=== PATIENT | female | born 1935 | race African-American/Black ===

== ENCOUNTER → 2016-08-26 | Outpatient (CLI) | payer BC ==
[~2016-08-26] MED LIST: ATEN100T8 PO; FERR325T5 PO; Lotrel PO; MULT-513 PO
--- NOTE | 2016-08-26 14:52 | MAMMOGRAPHY REPORT ---
BILATERAL DIGITAL SCREENING MAMMOGRAM WITH CAD: 08/26/2016 CLINICAL HISTORY: Routine screening. Patient has no complaints. TECHNIQUE: Current study was also evaluated with a Computer Aided Detection (CAD) system. Bilatera l CC and MLO views were obtained. COMPARISON: Comparison is made to exams dated: 08/07/2015 ultrasound, 08/07/2015 mammogram, 07/24/2015 mammogram, 07/17/2013 mammogram, 07/18/2014 mammogram, and 07/13/2012 mammogram - [facility]. BREAST COMPOSITION: There are scattered areas of fibroglandular density in both breasts. FINDINGS: No suspicious masses, calcifications, or areas of architectural distortion are noted in e ither breast. There has been no significant interval change compared to prior exams. Scattered bilat eral benign-appearing calcifications are not significantly changed. IMPRESSION: ACR BI-RADS CATEGORY 2: BENIGN There is no mammographic evidence of malignancy. A 1 year screening mammogram is recommended. The p atient will receive written notification of the results. Approximately 10% of breast cancers are not detected with mammography. A negative mammographic repor t should not delay biopsy if a clinically suggestive mass is present. Cara Santos M.D. /:08/26/2016 13:30:08 District Fire Chief: Sharon PALMER(Vincent)(Jose Manuel), [facility] letter sent: Normal 1/2 BI-RADS Code: ACR BI-RADS Category 2: Benign
== END | disposition home or self-care (01) ==
LOC: C.MAMM 09:13
PROVIDERS: ATTEND Internal Medicine Geriatric Medicine
DX: Z12.31 Encounter for screening mammogram for malignant neoplasm of breast (principal)

== ENCOUNTER → 2016-09-20 | Outpatient (CLI) | payer BC | END | disposition home or self-care (01) | LOC: C.RDSM 14:41 | PROVIDERS: ATTEND Physical Medicine & Rehabilitation Sports Medicine | DX: Z96.653 Presence of artificial knee joint, bilateral (principal) ==

== ENCOUNTER → 2016-11-04 | Outpatient (CLI) | payer BC | END | disposition home or self-care (01) | LOC: C.LAB 12:18 | PROVIDERS: ATTEND Internal Medicine Geriatric Medicine | DX: I12.9 Hypertensive chronic kidney disease with stage 1 through stage 4 chronic kidney disease, or unspecified chronic kidney disease (principal); M19.90 Unspecified osteoarthritis, unspecified site; N18.9 Chronic kidney disease, unspecified; C91.10 Chronic lymphocytic leukemia of B-cell type not having achieved remission; D64.9 Anemia, unspecified ==

== ENCOUNTER → 2016-11-04 | Outpatient (CLI) | payer BC ==
--- NOTE | 2016-11-04 13:19 | DIAGNOSTIC IMAGING REPORT ---
CHEST 2 VIEWS ROUTINE CLINICAL HISTORY: CLL dyspnea COMPARISON STUDY: 05/08/2015 FINDINGS: Lungs are considered clear. No evidence for cardiac enlargement. Potential developing blastic changes of the thoracic spine. Bone scan is suggested to exclude neoplastic process. IMPRESSION: 1. No acute process specifically of the chest. 2. Slight increase in bone density of the thoracic spine raising the possibility of metastatic change. Bone scan is suggested as follow-up Electronically signed by: Eleazar Woods M.D. 11/04/2016 1:17 PM Dictated Date/Time: 11/04/2016 1:15 PM
== END | disposition home or self-care (01) ==
LOC: C.RAD 12:30
PROVIDERS: ATTEND Nurse Practitioner Family
DX: C91.10 Chronic lymphocytic leukemia of B-cell type not having achieved remission (principal)

== ENCOUNTER → 2016-11-15 | Outpatient (CLI) | payer BC ==
--- NOTE | 2016-11-15 13:47 | DIAGNOSTIC IMAGING REPORT ---
WHOLE-BODY NUCLEAR BONE SCAN CLINICAL HISTORY: Abnormal chest x-ray. COMPARISON STUDY: Chest x-ray dated 11/04/2016. Abdominal CT dated 07/13/2012. TECHNIQUE: Three hours following the IV administration of 27 mCi of technetium 99m MDP, whole body nuclear bone scan was performed in the anterior and posterior projections. FINDINGS: There is extensive and indeterminant activity seen throughout the spine. There is intense activity within the upper cervical region, throughout the thoracic spine, and in the upper lumbar region. Advanced degenerative change is identified in the spine on the 07/13/[address] scan with significant degenerative endplate sclerosis. Photopenic defects from the knees are consistent with bilateral knee arthroplasties. Typically degenerative uptake is identified in the shoulders, hips, knees, in the ankles, and feet. Focal tracer activity suggested within the right tibial shaft. There is expected excreted activity within the renal collecting system and bladder. IMPRESSION: 1. There is multilevel abnormal degenerative tracer deposition seen throughout the spine. Extensive degenerative change was seen in the lower thoracic and upper lumbar spine by abdominal CT on 07/13/2012 with significant associated degenerative sclerosis. This activity is indeterminant, and a degenerative etiology is favored over metastatic disease. Cervical, thoracic, and lumbar spinal radiographs are recommended for further assessment. 2. There is a questionable mild indeterminant focus of activity in the right proximal tibial shaft. Radiographic correlation is recommended. 3. Additional findings as above. Electronically signed by: Maury Winn M.D. 11/15/2016 1:44 PM Dictated Date/Time: 11/15/2016 1:39 PM
== END | disposition home or self-care (01) ==
LOC: C.NUCL 09:34
PROVIDERS: ATTEND Internal Medicine Geriatric Medicine
DX: C91.10 Chronic lymphocytic leukemia of B-cell type not having achieved remission (principal); R93.8 Abnormal findings on diagnostic imaging of other specified body structures

== ENCOUNTER → 2016-11-22 | Outpatient (CLI) | payer BC ==
--- NOTE | 2016-11-22 09:17 | DIAGNOSTIC IMAGING REPORT ---
CERVICAL SPINE 2 OR 3 VIEWS CLINICAL HISTORY: Osteoarthritis. COMPARISON STUDY: Whole-body bone scan November 15, 2016. FINDINGS: Alignment of the cervical spine is anatomic. No fracture or suspicious lesion is identified by radiography. Moderate to severe multilevel degenerative disc disease and facet arthrosis is present. Prevertebral soft tissues are unremarkable. IMPRESSION: 1. Moderate to severe multilevel degenerative disc disease and facet arthrosis of the cervical spine. 2. No fracture or suspicious lesion by radiography within the cervical spine. Electronically signed by: Joe Wright M.D. 11/22/2016 9:15 AM Dictated Date/Time: 11/22/2016 9:13 AM
--- NOTE | 2016-11-22 09:17 | DIAGNOSTIC IMAGING REPORT ---
RIGHT TIBIA/FIBULA 2 VIEWS ROUTINE CLINICAL HISTORY: Right leg pain COMPARISON: 09/20/2016 DISCUSSION: There is a healing proximal fibular fracture, similar to the preceding examination. 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 No destructive lesions are visualized. IMPRESSION: 1. Healing proximal fibular fracture, unchanged in alignment when compared the prior study 2. 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 11/22/2016 9:15 AM Dictated Date/Time: 11/22/2016 9:13 AM
--- NOTE | 2016-11-22 09:18 | DIAGNOSTIC IMAGING REPORT ---
THORACIC SPINE 3 VIEWS HISTORY: Back pain. OSTEOARTHRITIS COMPARISON: Bone scan 11/15/2016. FINDINGS: There is no fracture. No subluxation. Paraspinal soft tissues are unremarkable. Cholecystectomy. End plate sclerosis throughout the majority of the thoracic spine with associated moderate to severe disc space narrowing and small endplate osteophytes. This favors advanced degenerative change. No destructive lesions identified. Fusion of the T6-T7 vertebral bodies. IMPRESSION: Advanced degenerative changes throughout the thoracic spine. This likely accounts for the bone scan abnormality. Electronically signed by: Lester Paz M.D. 11/22/2016 9:16 AM Dictated Date/Time: 11/22/2016 9:13 AM
--- NOTE | 2016-11-22 09:27 | DIAGNOSTIC IMAGING REPORT ---
L-SPINE MIN 4 VIEWS ROUTINE CLINICAL HISTORY: Osteoarthritis. COMPARISON: Whole-body bone scan November 15, 2016. FINDINGS: Mild dextroscoliosis of the lumbar spine is noted. There is no acute fracture or suspicious lesion. There is moderate to severe multilevel degenerative disc disease, most pronounced at the L5-S1 level. There is no fracture or suspicious lesion. There are suspected calcified uterine fibroids. There are cholecystectomy clips. IMPRESSION: 1. No acute lumbar spine fracture or suspicious lesion by radiography. 2. Moderate to severe multilevel degenerative changes, most pronounced at L5-S1. 3. Suspected calcified uterine fibroids. Electronically signed by: Joe Wright M.D. 11/22/2016 9:25 AM Dictated Date/Time: 11/22/2016 9:16 AM
== END | disposition home or self-care (01) ==
LOC: C.RADBC 08:20
PROVIDERS: ATTEND Internal Medicine Geriatric Medicine
DX: M19.90 Unspecified osteoarthritis, unspecified site (principal); M50.30 Other cervical disc degeneration, unspecified cervical region; M47.812 Spondylosis without myelopathy or radiculopathy, cervical region; M47.816 Spondylosis without myelopathy or radiculopathy, lumbar region; M47.817 Spondylosis without myelopathy or radiculopathy, lumbosacral region; M47.814 Spondylosis without myelopathy or radiculopathy, thoracic region; S82.831D Other fracture of upper and lower end of right fibula, subsequent encounter for closed fracture with routine healing; X58.XXXD Exposure to other specified factors, subsequent encounter; Z96.651 Presence of right artificial knee joint

== ENCOUNTER → 2016-11-30 | Outpatient (CLI) | payer BC ==
--- NOTE | 2016-12-06 13:22 | CODING QUERY MEDICAL NECESSITY ---
SUPPORTING DIAGNOSIS NEEDED Dr. Negerte, A supporting diagnosis is required for the test/procedure performed on this patient in order for us to be reimbursed by the patient's insurance. Please provide a supporting diagnosis for the following test/procedure listed below next to the test name along with your signature. *If there is no additional diagnosis for this patient that would support the following test/procedure please document that below next to the test/procedure. Test(s)/Procedure(s) that require a supporting diagnosis: * ([id number]) DXA BONE DENSITY, AXIAL DIAGNOSIS: DATE OF SERVICE: 11/30/16 Provider Signature: Date: Thank you Humble Perera [facility] Information Management Once completed, please kindly fax back to [phone] For questions please call [phone]
== END | disposition home or self-care (01) ==
LOC: C.MAMM 10:06
PROVIDERS: ATTEND Internal Medicine Geriatric Medicine
DX: Z00.00 Encounter for general adult medical examination without abnormal findings (principal); C91.10 Chronic lymphocytic leukemia of B-cell type not having achieved remission

== ENCOUNTER → 2017-05-10 | Outpatient (CLI) | payer BC ==
[2017-05-10 14:32] LABS: MEAN CORPUSCULAR HGB CONC 32.6 g/dl (32-36); MEAN PLATELET VOLUME 9.8 fL (7.4-10.4); PLATELET COUNT 189 K/uL (130-400)
[2017-05-10 14:51] LABS: URINE PROTIEN/CREAT RATIO 0.1 (0-0.2); URINE TOTAL PROTEIN 18.1 mg/dl (0-11.9)
[2017-05-10 15:18] LABS: ALT/SGPT 17 U/L (12-78); AST/SGOT 10 U/L (15-37); BLOOD UREA NITROGEN 41 mg/dl (7-18); BUN/CREATININE RATIO 22.8 (10-20); CALCIUM 8.5 mg/dl (8.5-10.1); CARBON DIOXIDE 21 mmol/L (21-32); CHLORIDE 106 mmol/L (98-107); GLUCOSE 108 mg/dl (70-99); POTASSIUM 4.1 mmol/L (3.5-5.1); SODIUM 137 mmol/L (136-145)
[2017-05-10 15:20] LABS: ALB/GLOB RATIO 1.1 (0.9-2); ALKALINE PHOSPHATASE 73 U/L (45-117)
[2017-05-10 15:48] LABS: COMPLETE YES; EOSINOPHIL % 0.9 %; HEMATOCRIT 32.2 % (37-47); LYMPH ABS # 15.79 K/uL (1.2-3.4); LYMPHOCYTE % 88.7 %; MEAN CELL VOLUME 91.7 fL (80-100); MEAN CORPUSCULAR HEMOGLOBIN 29.9 pg (25-34); NEUTROPHILS % 7.8 %; RED BLOOD COUNT 3.51 M/uL (4.2-5.4); SCHISTOCYTES OCCASIONAL; SMUDGE CELLS PRESENT
== END | disposition home or self-care (01) ==
LOC: C.LAB 12:37
PROVIDERS: ATTEND Internal Medicine Geriatric Medicine
DX: I12.9 Hypertensive chronic kidney disease with stage 1 through stage 4 chronic kidney disease, or unspecified chronic kidney disease (principal); D64.9 Anemia, unspecified; C91.10 Chronic lymphocytic leukemia of B-cell type not having achieved remission; N18.9 Chronic kidney disease, unspecified

== ENCOUNTER → 2017-08-30 | Outpatient (CLI) | payer BC ==
--- NOTE | 2017-08-30 14:41 | MAMMOGRAPHY REPORT ---
BILATERAL DIGITAL SCREENING MAMMOGRAM TOMOSYNTHESIS WITH CAD: 08/30/2017 CLINICAL HISTORY: Routine screening. Patient has no complaints. TECHNIQUE: Breast tomosynthesis in addition to standard 2D mammography was performed. Current study was also evaluated with a Computer Aided Detection (CAD) system. COMPARISON: Comparison is made to exams dated: 08/26/2016 mammogram, 08/07/2015 ultrasound, 08/07/2015 ma mmogram, 07/24/2015 mammogram, 07/18/2014 mammogram, and 07/17/2013 mammogram - [facility]. BREAST COMPOSITION: There are scattered areas of fibroglandular density in both breasts. FINDINGS: No suspicious masses, calcifications, or areas of architectural distortion are noted in ei ther breast. There has been no significant interval change compared to prior exams. Scattered bilater al benign-appearing calcifications are not significantly changed. IMPRESSION: ACR BI-RADS CATEGORY 2: BENIGN There is no mammographic evidence of malignancy. A 1 year screening mammogram is recommended. The pa tient will receive written notification of the results. Approximately 10% of breast cancers are not detected with mammography. A negative mammographic report should not delay biopsy if a clinically suggestive mass is present. Cara Santos M.D. /:08/30/2017 13:41:17 Case Management Rn: Shelley Dejesus, [facility] letter sent: Normal 1/2 BI-RADS Code: ACR BI-RADS Category 2: Benign
== END | disposition home or self-care (01) ==
LOC: C.MAMM 09:28
PROVIDERS: ATTEND Internal Medicine Geriatric Medicine
DX: Z12.31 Encounter for screening mammogram for malignant neoplasm of breast (principal)

== ENCOUNTER → 2017-09-19 | Outpatient (CLI) | payer BC | END | disposition home or self-care (01) | LOC: C.RDSM 10:30 | PROVIDERS: ATTEND Physical Medicine & Rehabilitation Sports Medicine | DX: Z96.653 Presence of artificial knee joint, bilateral (principal) ==

== ENCOUNTER → 2017-11-24 | Outpatient (CLI) | payer BC ==
[2017-11-24 13:17] LABS: HEMATOCRIT 34.8 % (37-47); HEMOGLOBIN 11.6 g/dL (12.0-16.0); MEAN CELL VOLUME 93.5 fL (80-100); MEAN CORPUSCULAR HEMOGLOBIN 31.2 pg (25-34); MEAN CORPUSCULAR HGB CONC 33.3 g/dl (32-36); MEAN PLATELET VOLUME 9.8 fL (7.4-10.4); PLATELET COUNT 188 K/uL (130-400); RED CELL DISTRIBUTION WIDTH CV 14.3 % (11.5-14.5); RED CELL DISTRIBUTION WIDTH SD 48.8 fL (36.4-46.3); WHITE BLOOD COUNT 25.53 K/uL (4.8-10.8)
[2017-11-24 13:38] LABS: ALBUMIN 3.8 gm/dl (3.4-5.0); BLOOD UREA NITROGEN 27 mg/dl (7-18); CALCIUM 9.6 mg/dl (8.5-10.1); CARBON DIOXIDE 24 mmol/L (21-32); CREATININE 1.26 mg/dl (0.60-1.20); GLUCOSE 94 mg/dl (70-99); POTASSIUM 4.3 mmol/L (3.5-5.1); SODIUM 137 mmol/L (136-145)
[2017-11-24 13:46] LABS: PHOSPHORUS 4.2 mg/dl (2.5-4.9); TRANSFERRIN 226 mg/dl (200-360)
[2017-11-24 13:54] LABS: BASO % 0.1 %; BASO ABS # 0.03 K/uL (0-0.2); EOS % 0.7 %; EOS ABS # 0.17 K/uL (0-0.5); IG# 0.04 K/uL (0.00-0.02); LYMPH % 79.7 %; LYMPH ABS # 20.36 K/uL (1.2-3.4); MONO % 9.9 %; MONO ABS # 2.54 K/uL (0.11-0.59); NEUT % 9.4 %; NEUT ABS # 2.39 K/uL (1.4-6.5)
== END | disposition home or self-care (01) ==
LOC: C.LAB 12:07
PROVIDERS: ATTEND Internal Medicine Nephrology
DX: N18.9 Chronic kidney disease, unspecified (principal); D64.9 Anemia, unspecified; E21.3 Hyperparathyroidism, unspecified

== ENCOUNTER 2019-09-23 01:28 | Inpatient (IN) ==
[2019-09-23] MEDS: SODIUM CHLORIDE 0.9% 1000ML 1,000 ML IV SCH ×2 (03:16→08:58)
[2019-09-23 03:38] LABS: Hematocrit (blood only) 20.8 % (37-47); Hemoglobin 7.2 g/dL (12.0-16.0); Mean Corpuscular Hemoglobin 32.3 pg (25-34); Mean Corpuscular Hgb Conc 34.6 g/dL (32-36); Mean Corpuscular Volume 93.3 fL (80-100); Mean Platelet Volume 8.9 fL (7.4-10.4); Platelet Count 43 K/uL (130-400); RDW Coefficient of Variation 18.4 % (11.5-14.5); RDW Standard Deviation 63.2 fL (36.4-46.3); Red Blood Count 2.23 M/uL (4.2-5.4); White Blood Count 2.63 K/uL (4.8-10.8)
[2019-09-23 03:46] LABS: Immature Granulocytes # (auto) 0.19 K/uL (0.00-0.02); Immature Granulocytes % (auto) 7.2 %; Lymphocytes # (auto) 0.68 K/uL (1.2-3.4); Lymphocytes % (auto) 25.9 %; Monocytes # (auto) 0.45 K/uL (0.11-0.59); Monocytes % (auto) 17.1 %; Neutrophils # (auto) 1.31 K/uL (1.4-6.5); Neutrophils % (auto) 49.8 %; Ovalocytes 1+; Poikilocytosis Present
[2019-09-23 04:13] LABS: Albumin Level 2.4 gm/dl (3.4-5.0); BUN Creatinine Ratio 15.7 (10-20); Bilirubin,Total 0.5 mg/dl (0.2-1); Calcium 7.5 mg/dl (8.5-10.1); Creatinine Clr Calc Pharmacy 25.6 ml/min; Est GFR (African American) 47.2; Est GFR (Non-African American) 40.8; Globulin 2.4 gm/dl (2.5-4.0); Magnesium 0.9 mg/dl (1.8-2.4); Potassium 3.6 mmol/L (3.5-5.1); Total Protein 4.8 gm/dl (6.4-8.2)
[2019-09-23] MEDS: MAGNESIUM SULFATE / D5W 1 GM/100 ML BAG IV SCH ×6 (04:28→15:56)
[2019-09-23 06:57] LABS: Appearance Urine Clear (Clear); Bilirubin Urine Negative (Negative); Blood Urine 1+ (Negative); Color Urine Yellow; Glucose Urine UA Negative (Negative); Ketones Urine 1+ (Negative); Leukocyte Esterase Urine 1+ (Negative); Nitrite Urine Negative (Negative); Protein Urine Negative (Negative); Urobilinogen Urine Negative (Negative)
--- NOTE | 2019-09-23 07:01 | CT Scan Report ---
CT abd pelvis wo con CT DOSE: 235.57 mGy.cm HISTORY: Bowel change diarrhea, pancytopenia, hx ca TECHNIQUE: Multiaxial CT images of the abdomen and pelvis were performed without contrast. A dose lo wering technique was utilized adhering to the principles of ALARA. COMPARISON STUDY: 03/19/2019 FINDINGS: Lung bases are clear. Liver spleen and pancreas are grossly unremarkable. Prior cholecystec ruben. Kidneys are negative for hydronephrosis. Mild colonic wall thickening which may relate to a mild component of colitis. There are multiple calc ified uterine fibroids. Diffusely heterogeneous bony structures throughout suggested metastatic change. This has been describ ed previously. IMPRESSION: 1. Possible mild colitis. 2. No evidence for abscess collection or obstruction. 3. Multiple calcified uterine fibroids. 4. Lytic changes of the bony structures throughout similar to prior exams. ACT 112: Negative or not required by law. The above report was generated using voice recognition software. It may contain grammatical, syntax or spelling errors. Electronically signed by: Eleazar Woods M.D. 09/23/2019 6:59 AM
[2019-09-23 07:12] LABS: Epithelial Cell Urine >30 /lpf (0-5); RBC Urine >30 /hpf (0-4)
[2019-09-23 07:14] LABS: Bacteria Urine 4+ (Negative); WBC Urine >30 /hpf (0-5)
--- NOTE | 2019-09-23 07:36 | Emergency Department Note ---
Entered by Patel Rosales acting as a scribe for History of Present Illness General Chief complaint: Diarrhea Stated complaint: DIARRHEA Time Seen by Provider: 09/23/19 02:15 Source: family (niece) History of Present Illness Onset (ago): month(s) 5 Location: abdomen Pain Consistency: + intermittent Quality: + other (episodes of diarrhea) Associated symptoms: + other (Positive for 40 pound weight loss, abdominal pain, an episode of unresponsiveness, dark and blood tinged diarrhea, and chills. Negative for fever.) The patient is an 83 year old female who presents to the emergency department with complaints of intermittent diarrhea beginning five months ago. Per niece, the patient has a history of CLL and is receiving chemotherapy and radiation. Dr. Sweeney in her oncologist. She states that the patient has had intermittent episodes of diarrhea for the last five months. She notes that the patient had salmonella 3 months ago, and she reports that the patient has lost around 40 pounds since then. She states that the patient developed abdominal pain yesterday. She notes that the patient had an episode tonight where she fell to the floor and was briefly unresponsive for a short period. She reports that the patient had an episode of severe diarrhea at that time, prompting her visit to the emergency department this morning. She states that the patients diarrhea is dark, and she notes that there is a blood colored tinge around the edges of the toilet bowel when she has a bowel movement. She reports that the patient also has chills, but she states that she has not had a fever. She notes that the patient takes an iron pill but is not on any blood thinners. Per family, pt has never had a colonoscopy. No known hx of IBS or IBD. Home Medications Home Medications Medication Instructions Recorded Confirmed Type Saccharomyces boulardii [Florastor] 250 mg PO BID #20 cap 09/03/19 09/23/19 Rx atenolol 25 mg tablet 25 mg PO DAILY #30 tab 09/11/19 09/23/19 Rx ferrous sulfate 325 mg (65 mg 325 mg PO QAM #90 tab 09/11/19 09/23/19 Rx iron) tablet multivitamin 1 cap PO QAM #90 cap 09/11/19 09/23/19 Rx potassium chloride 10 mEq 10 meq PO QAM #90 tab 09/18/19 09/23/19 Rx tablet,extended release Allergies Allergy/AdvReac Type Severity Reaction Status Date / Time codeine AdvReac Mild nausea Verified 09/23/19 02:03 tramadol AdvReac Mild GI upset, Verified 09/23/19 02:03 dizziness Past Med/Surg History Medical History Anemia Chronic kidney disease, stage IV (severe) Chronic lymphocytic leukemia under surveillance by oncology s/p 5 chemo cycles (completed 11/2018) Former smoker Gastroesophageal reflux disease History of blood transfusion remote, post-op Hyperparathyroidism Hypertension Non-ST elevation [place] (NSTEMI) (Inactive) Osteoarthritis Pancytopenia (Acute) Right bundle branch block Salmonella Supraclavicular adenopathy Thrombocytopenia Surgical History History of bilateral knee replacement (Resolved) History of carpal tunnel release of both wrists Hx of bilateral cataract extraction Hx of cholecystectomy S/P bronchoscopy with biopsy (05/25/19) Endobronchial Ultrasound Navigational Bronchoscopy with Biopsies Dr. Neville 05/25/19 - [facility] Family History Mother , 90yo Hypertension Stroke Myocardial infarction Diabetes Brother Lung cancer Mother Family history of diabetes mellitus Father , 89yo Myocardial infarction Brother Cancer Brother Cancer Social History Preferred Language: Croatian Communication Ability: Effective Visual Impairment: No Limitations Hearing Ability: Normal Sap Ppm Consultant Required: No Beliefs That Will Affect Care: None marital status: Current Living Situation: Alone current occupational status: retired current occupation: Cosmetology Other Information That Helps Us Care for You: No Feels Safe at Home: Yes Safety Concerns: Feels Safe At This Time Smoking Status: Former smoker Cigarettes Per Day: 1 pack/week;Smoked x 10yrs;Quit 1975 ; Second Hand Exposure: No ; Hx Alcohol Use: No Hx Substance Use: No caffeine: Yes (1 cup/day) during the past year weight has: decreased > 10 lbs Review of Systems See HPI for pertinent positives & negatives. and A total of 10 systems reviewed and were otherwise negative Physical Exam Vital Signs Vital Signs - 24 hr 09/23/19 01:37 09/23/19 03:27 09/23/19 05:22 Temperature 36.7 C Temperature Source Oral Pulse Rate 98 H Pulse Rate [Finger] 86 86 Pulse Rhythm Regular Pulse Rhythm [Finger] Regular Pulse Strength Normal Respiratory Rate 12 14 Respiratory Depth Normal Blood Pressure 133/66 Blood Pressure [Right Arm] 123/68 Blood Pressure Mean 88 Blood Pressure Mean [Right Arm] 86 Blood Pressure Position [Right Arm] Lying Pulse Oximetry 100 98 Oxygen Delivery Method Room Air Sepsis Recent Fever Within 48 Hours No Sepsis Action Taken by Nursing No Action Required GENERAL: alert, ill appearing, well nourished, no distress, non-toxic EYE EXAM: normal conjunctiva, PERRL and EOM's grossly intact OROPHARYNX: no exudate, no erythema, lips, buccal mucosa, and tongue normal and mucous membranes are dry NECK: supple, no nuchal rigidity, no adenopathy, non-tender LUNGS: Clear to auscultation. Normal chest wall mechanics, no w/r/r HEART: no murmurs, S1 normal and S2 normal ABDOMEN: abdomen soft, normo-active bowel sounds, no masses, no rebound or guarding. Mild generalized abdominal discomfort with palpation. BACK: Back is symmetrical on inspection and there is no deformity, no midline tenderness, no CVA tenderness. SKIN: no rashes and no bruising UPPER EXTREMITIES: upper extremities are grossly normal. FROM, nml pulses b/l. LOWER EXTREMITIES: No pitting edema. FROM, nml pulses b/l. NEURO EXAM: Normal sensorium, cranial nerves II-XII grossly intact, normal speec h, no gross weakness of arms, no gross weakness of legs. Course Course 0235: The patient was evaluated in room C7. A complete history and physical exam was performed. 0533: I rechecked the patient. She was sleeping. Updated family on results. 0711: Updated family again. VS stable. No current diarrhea. 0725: Upon reevaluation, the patient is stable. I discussed the findings and the treatment plan with the patient. She expresses agreement and understanding. I spoke with [place]. Khan of the [facility] [place] [facility]. The patient will be evaluated for further management. Consultations Consultation #1: I reviewed the patient's case with Dr. Khan - Hospitalist, [facility] He will evaluate the patient for further management. Administered Medications Atenolol (Tenormin) 25 mg PO DAILY [facility] Stop: 10/23/19 08:59 Last Admin: 09/24/19 08:01 Dose: Not Given Documented by: [id number] Admin: 09/23/19 10:23 Dose: Not Given Documented by: [id number] Ciprofloxacin (Cipro) 400 mg in 200 mls @ 100 mls/hr IV Q24H DONNELL; Protocol Stop: 10/03/19 16:59 Last Infusion: 09/24/19 18:52 Dose: 0 mls/hr Documented by: [id number] Admin: 09/24/19 16:50 Dose: 100 mls/hr Documented by: [id number] Infusion: 09/23/19 19:10 Dose: 0 mls/hr Documented by: [id number] Admin: 09/23/19 17:09 Dose: 100 mls/hr Documented by: [id number] Potassium Chloride (Klor-Con Pwd) 20 meq PO TID [facility] Stop: 09/26/19 09:01 Last Admin: 09/24/19 21:27 Dose: 20 meq Documented by: [id number] Admin: 09/24/19 14:15 Dose: 20 meq Documented by: [id number] Discontinued Medications Sodium Chloride (Nss 1000ml) 1,000 mls @ 200 mls/hr IV .Q5H [facility] Stop: 10/23/19 02:44 Last Admin: 09/23/19 08:58 Dose: Not Given Documented by: [id number] Infusion: 09/23/19 08:58 Dose: 0 mls/hr Documented by: [id number] Admin: 09/23/19 03:16 Dose: 200 mls/hr Documented by: [id number] Magnesium Sulfate/Dextrose (Magnesium Sulfate / D5w) 1 gm in 100 mls @ 100 mls/hr IV Q1H [facility] Stop: 09/23/19 06:14 Last Infusion: 09/23/19 06:26 Dose: 0 mls/hr Documented by: [id number] Admin: 09/23/19 05:26 Dose: 100 mls/hr Documented by: [id number] Infusion: 09/23/19 05:26 Dose: 100 mls/hr Documented by: [id number] Admin: 09/23/19 04:28 Dose: 100 mls/hr Documented by: [id number] Magnesium Sulfate/Dextrose (Magnesium Sulfate / D5w) 1 gm in 100 mls @ 100 mls/hr IV Q1H [facility] Stop: 09/23/19 16:44 Last Infusion: 09/23/19 17:09 Dose: 0 mls/hr Documented by: [id number] Admin: 09/23/19 15:56 Dose: 100 mls/hr Documented by: [id number] Infusion: 09/23/19 15:55 Dose: 100 mls/hr Documented by: [id number] Admin: 09/23/19 14:55 Dose: 100 mls/hr Documented by: [id number] Infusion: 09/23/19 14:49 Dose: 100 mls/hr Documented by: [id number] Admin: 09/23/19 13:49 Dose: 100 mls/hr Documented by: [id number] Infusion: 09/23/19 13:49 Dose: 100 mls/hr Documented by: [id number] Admin: 09/23/19 12:58 Dose: 100 mls/hr Documented by: [id number] Potassium Chloride (K Junior / Wtr) 10 meq in 100 mls @ 100 mls/hr IV Q1H [facility] Stop: 09/24/19 14:44 Last Infusion: 09/24/19 15:15 Dose: 0 mls/hr Documented by: [id number] Admin: 09/24/19 14:15 Dose: 100 mls/hr Documented by: [id number] Infusion: 09/24/19 14:14 Dose: 100 mls/hr Documented by: [id number] Admin: 09/24/19 13:14 Dose: 100 mls/hr Documented by: [id number] Medical Decision Making Differential Diagnosis Differential diagnoses includes but is not limited to gastritis, peptic ulcer disease, GERD, gallbladder disease, pancreatitis, small bowel obstruction, acute coronary syndrome, pericarditis, ischemic bowel, irritable bowel disease, irritable bowel syndrome, appendicitis, diverticulitis, malignancy, hernia, urinary tract infection, torsion, perforation, trauma, infectious. Medical Records Attestation: I reviewed the patient's medical records. Home Medications Current Medication List: was personally reviewed by me Laboratory Data Attestation: I reviewed the patient's lab results. Result diagrams: 09/24/19 05:56 09/24/19 05:56 Lab Results 09/23/19 09/23/19 09/23/19 Range/Units 03:11 03:11 03:11 WBC 2.63 L (4.8-10.8) K/uL RBC 2.23 L (4.2-5.4) M/uL Hgb 7.2 L (12.0-16.0) g/dL Hct 20.8 L* (37-47) % MCV 93.3 (80-100) fL MCH 32.3 (25-34) pg MCHC 34.6 (32-36) g/dL RDW Std Deviation 63.2 H (36.4-46.3) fL RDW Coeff of Ritchie 18.4 H (11.5-14.5) % Plt Count 43 L (130-400) K/uL MPV 8.9 (7.4-10.4) fL Immature Gran % (Auto) 7.2 % Neut % (Auto) 49.8 % Lymph % (Auto) 25.9 % Starr % (Auto) 17.1 % Eos % (Auto) 0.0 % Baso % (Auto) 0.0 % Immature Gran # (Auto) 0.19 H (0.00-0.02) K/uL Neut # (Auto) 1.31 L (1.4-6.5) K/uL Lymph # (Auto) 0.68 L (1.2-3.4) K/uL Starr # (Auto) 0.45 (0.11-0.59) K/uL Eos # (Auto) 0.00 (0-0.5) K/uL Baso # (Auto) 0.00 (0-0.2) K/uL Poikilocytosis Present Ovalocytes 1+ Sodium 137 (136-145) mmol/L Potassium 3.6 (3.5-5.1) mmol/L Chloride 108 H (98-107) mmol/L Carbon Dioxide 18 L (21-32) mmol/L Anion Gap 11.0 (3-11) BUN 19 H (7-18) mg/dl Creatinine 1.21 H (0.6-1.2) mg/dl Est Cr Clr Drug Dosing 25.6 ml/min Est GFR ( Amer) 47.2 Est GFR (Non-Af Amer) 40.8 BUN/Creatinine Ratio 15.7 (10-20) Glucose 83 (70-99) mg/dl Lactate 0.7 (0.4-2.0) mmol/L Calcium 7.5 L (8.5-10.1) mg/dl Magnesium 0.9 L* (1.8-2.4) mg/dl Total Bilirubin 0.5 (0.2-1) mg/dl AST 72 H (15-37) U/L ALT 43 (12-78) U/L Alkaline Phosphatase 68 (45-117) U/L Total Protein 4.8 L (6.4-8.2) gm/dl Albumin 2.4 L (3.4-5.0) gm/dl Globulin 2.4 L (2.5-4.0) gm/dl Albumin/Globulin Ratio 1.0 (0.9-2) Lipase 83 (73-393) U/L Urine Color Urine Appearance (Clear) Urine pH (4.5-7.5) Ur Specific Palms (1.000-1.030) Urine Protein (Negative) Urine Glucose (UA) (Negative) Urine Ketones (Negative) Urine Blood (Negative) Urine Nitrite (Negative) Urine Bilirubin (Negative) Urine Urobilinogen (Negative) Ur Leukocyte Esterase (Negative) Urine RBC (0-4) /hpf Urine WBC (0-5) /hpf Ur Epithelial Cells (0-5) /lpf Urine Bacteria (Negative) Granular Casts (0) /lpf 09/23/19 Range/Units 06:20 WBC (4.8-10.8) K/uL RBC (4.2-5.4) M/uL Hgb (12.0-16.0) g/dL Hct (37-47) % MCV (80-100) fL MCH (25-34) pg MCHC (32-36) g/dL RDW Std Deviation (36.4-46.3) fL RDW Coeff of Ritchie (11.5-14.5) % Plt Count (130-400) K/uL MPV (7.4-10.4) fL Immature Gran % (Auto) % Neut % (Auto) % Lymph % (Auto) % Starr % (Auto) % Eos % (Auto) % Baso % (Auto) % Immature Gran # (Auto) (0.00-0.02) K/uL Neut # (Auto) (1.4-6.5) K/uL Lymph # (Auto) (1.2-3.4) K/uL Starr # (Auto) (0.11-0.59) K/uL Eos # (Auto) (0-0.5) K/uL Baso # (Auto) (0-0.2) K/uL Poikilocytosis Ovalocytes Sodium (136-145) mmol/L Potassium (3.5-5.1) mmol/L Chloride (98-107) mmol/L Carbon Dioxide (21-32) mmol/L Anion Gap (3-11) BUN (7-18) mg/dl Creatinine (0.6-1.2) mg/dl Est Cr Clr Drug Dosing ml/min Est GFR ( Amer) Est GFR (Non-Af Amer) BUN/Creatinine Ratio (10-20) Glucose (70-99) mg/dl Lactate (0.4-2.0) mmol/L Calcium (8.5-10.1) mg/dl Magnesium (1.8-2.4) mg/dl Total Bilirubin (0.2-1) mg/dl AST (15-37) U/L ALT (12-78) U/L Alkaline Phosphatase (45-117) U/L Total Protein (6.4-8.2) gm/dl Albumin (3.4-5.0) gm/dl Globulin (2.5-4.0) gm/dl Albumin/Globulin Ratio (0.9-2) Lipase (73-393) U/L Urine Color Yellow Urine Appearance Clear (Clear) Urine pH 5.0 (4.5-7.5) Ur Specific Palms 1.020 (1.000-1.030) Urine Protein Negative (Negative) Urine Glucose (UA) Negative (Negative) Urine Ketones 1+ H (Negative) Urine Blood 1+ H (Negative) Urine Nitrite Negative (Negative) Urine Bilirubin Negative (Negative) Urine Urobilinogen Negative (Negative) Ur Leukocyte Esterase 1+ H (Negative) Urine RBC >30 H (0-4) /hpf Urine WBC >30 H (0-5) /hpf Ur Epithelial Cells >30 H (0-5) /lpf Urine Bacteria 4+ H (Negative) Granular Casts 1-5 H (0) /lpf Imaging Data Radiologist's Impression: Radiology results as stated below per my review and the radiologist's interpretation: CT ABDOMEN & PELVIS Without Contrast: Comparison August 21, 2018. Evaluation of viscera is limited without contrast. Although underdistended, would question whether there is mural thickening of the colon. Recommend correlation for colitis. No bowel obstruction. No evidence for acute pancreatitis. Nonobstructive renal calcifications. No ureteral calculus or hydronephrosis. Heterogenous density of the osseous structures. May represent Lytic and blastic changes. Similar appearance as prior. Adenopathy seen on the prior exam is not identified on the current study. Cholecystectomy, fibroid uterus, low-density liver lesions, adrenal thickening/possible mild nodularity and other nonemergent/incidentals. Radiologist: Henry Bradshaw MD. ECG Data Attestation: I personally reviewed and interpreted this ECG as follows: Indication: + weakness Rate (beats per minute): 89 Rhythm: + sinus rhythm ECG [place]: + Normal ECG ST segments: + T-wave inversions (in AVL and V2); no ST elevation ECG Findings: no PACs and no PVCs Comparison ECG Date: from (09/03/19) Change: the following changes noted (Compared to prior, TWI in AVL are new.) Additional Comments: Normal intervals. Low voltage. Blood Pressure Blood Pressure Findings: Elevated blood pressure Blood Pressure Disposition: elevated BP felt to be situational MDM Narrative Pt here mildly ill appearing. Diarrhea has been intermittent for several months . No known GI hx. Initially thought to be a side effect of chemo/radiation and then medication. Then subsequent Salmonella infection treated with cipro per EMR. Recurrence recently has resulted in weakness, weight loss, poor intake. No fevers. Abdominal pain/cramping recently. Pt found to have colitis. Stool cultures and c.diff ordered and pending, along with UA when I discussed the case with the hospitalist. No urinary symptoms. I do not suspect ischemic process. Pt with known pancytopenia due to cancer treatment, this is evident again, doesn't appear significantly worse compared to prior, however given colitis and likely accompanying blood loss, I am concerned about the patient's fragile state as well as recurrent infection. Pt hemodynamically stable while in the ER. Pt carefully rehydrated and magnesium repleted. Case discussed with hospitalist for additional evaluation and mgmt. Impression & Plan Diarrhea, Dehydration, Hypomagnesemia, Colitis, Pancytopenia Discharge Plan Visit Data *Final* Discharge Date/Time: 09/23/19 08:32 Chief Complaint: Diarrhea Stated Complaint: DIARRHEA ED Provider: Brionna Perea Discharge Problem: Diarrhea, Dehydration, Hypomagnesemia, Colitis, Pancytopenia Patient Disposition: Admitted As Inpatient Discharge Instructions Interventions: ED Discharge Assessment Last Done: 09/23/19 08:32 Discharge Problem: Diarrhea Qualifiers: Diarrhea type: unspecified type Qualified Code(s): R19.7 - Diarrhea, unspecified The scribe's documentation has been prepared under my direction and personally reviewed by me in its entirety. I confirm that the note above accurately reflects all work, treatment, procedures, and medical decision making performed by me.
[2019-09-23] MEDS ORDERED: ONDANSETRON INJ 2 MG/ML 2 ML VIAL IV PRN (08:57)
[2019-09-23] MEDS: ATENOLOL 25 MG TABLET PO SCH (10:23)
--- NOTE | 2019-09-23 13:22 | History & Physical Report ---
Date of Service September 23, 2019 Assessment & Plan (1) Diarrhea: Has been having on/off diarrhea for several months. Stool with Salmonella - Group C in 07/2019. Seems to have waxed/waned since then. See the HPI from my H&P for her last 2 month time course. - Given the positive urine culture 2 months after initial diagnosis of Salmonella (and >1 month after finishing Cipro), I am worried she has disseminated Salmonella. Her 7-day course of Cipro could be an under-treated Salmonella infection. In immunocompetent patients, 7 days is adequate, but she is immunosuppressed from her CLL. - Stool, blood, and urine all re-cultured on admission prior to any abx given. - Empirically will start Cipro. - ID consult for possible disseminated Salmonella infection (2) Chronic lymphocytic leukemia: Was originally diagnosed in 2011. Got 5 of 6 cycles of bendamustine and rituximab in the summer, but last cycle was stopped due to pancytopenia. - Due to continued pancytopenia, Dr. Sweeney was consulted during 07/2019 admission and counseled bone marrow biopsy which she declined. Again offered bone marrow biopsy as outpatient in 08/2019 and declined again. - Supportive care for blood counts (3) Pancytopenia: Likely due to CLL and possibly Salmonella infection. No indication of acute - T&S with tomorrow's labs in case she needs a PRBCs or platelets (4) Non-small cell cancer of left lung: Diagnosed on endobronchial biopsy by Dr. Neville in 05/2019. Initially plan had been for surgical resection, but her frailty, pancytopenia, and ongoing medical issues made her a poor surgical candidate. Now plan is for stereotactic body radiation with radiation oncology; however, from the patient's family description, and my read of the rad onc note, her tumor location makes this too risky. (Her family reports they were told of a risk of esophageal damage.) At present, it appears she will have to get more fractionated treatment. - Medical oncology consulted - Will get palliative care consult as well given she has multiple cancers that may/may not be amenable to be treated (5) CAD (coronary artery disease): Mildly elevated troponins (0.09 peak) in 07/2019, but otherwise don't see any history of CAD. Multiple cardiology notes do not reference any CAD. - Continue beta-jozef - Given anemia and thrombocytopenia, will avoid ASA (6) Hypertension: Has been dealing with orthostatic hypotension as an outpatient. BP meds have been taken off/reduced. Chlorthalidone was stopped for hypokalemia/hypomagnesemia. Atenolol was lowered as well. - Continue atenolol 25mg daily - Monitor BP (7) CKD (chronic kidney disease) stage 3, GFR 30-59 ml/min: Baseline Cr. ~1.2-1.5, eGFR 45. - At baseline on admission - Monitor Cr (8) DVT prophylaxis: SCDs - Patient is higher risk for DVT; however, with anemia and thrombocytopenia do not feel comfortable with heparin History of Present Illness Primary Care Provider: Kamran De La Rosa, DO 83yo F w/ hx of CLL, non-small cell carcinoma of the lung, and Salmonella diarrhea who presents with continued diarrhea and pre-syncopal event. The patient has been dealing with diarrhea for several months now. She originally tested positive for Salmonella in 07/07/2019. She was admitted at that time after having had diarrhea about 1 week, having syncopal episodes, and in fact having kidney failure from dehydration. She was treated with 1 week of ciprofloxacin entirely while being in the hospital. Cipro finished on 07/19/2019. Her hospital stay was prolonged due to suppressed cell counts that were presumed to be due to her CLL. She required transfusions of both PRBCs and platelets during that admission with hgb as low as 6.8 and plts as low as 10. There was some concern that she had progression of her CLL; however, per Dr. Sweeney's notes, she has declined bone marrow biopsy in the past and continues to decline it. She was eventually discharged to SNF on 07/20/2019. She was seen in primary care on 07/31/2019 and had labs done which showed low potassium, and she was again admitted for repletion of her electrolytes. She actually had not felt too bad at that time, and reported to me (Jasmeet Khan) that she would not have come to the hospital except that her PCP had told her to. She felt better fairly quickly and was discharged home on 08/02. At that time, her chlorthalidone was stopped, and she was put on electrolyte supplements. She was seen by PCP on 08/13/2019 and seemed to be doing well. She was put on abx by the Emergency Department on 08/16/2019 for an episode of low BP at home (though normal BP on the vitals I see in the ED) and a dirty UA. Her urine cx grew Morganella morganii & Alpha Strep spc. She returned to the ED on 09/03/2019 with another episode of weakness and diarrhea. Her urine cx this time grew Salmonella - Same group as her stool in 07/2019. She was sent home from the ED with cefdinir (seeing as the culture had not returned yet on ED discharge). She returns to the hospital today for continued diarrhea and another pre- syncopal event. Her niece and god-daughter are with her today. They report that her diarrhea improved temporarily, but has been back for at least the last several weeks. They report that it is sometimes loose and has a pinkish tinge to it, but no outright hematochezia or melena. Allergies Allergy/AdvReac Type Severity Reaction Status Date / Time codeine AdvReac Mild nausea Verified 09/23/19 02:03 tramadol AdvReac Mild GI upset, Verified 09/23/19 02:03 dizziness Home Medications Home Medications Medication Instructions Recorded Confirmed Type Saccharomyces boulardii [Florastor] 250 mg PO BID #20 cap 09/03/19 09/23/19 Rx atenolol 25 mg tablet 25 mg PO DAILY #30 tab 09/11/19 09/23/19 Rx ferrous sulfate 325 mg (65 mg 325 mg PO QAM #90 tab 09/11/19 09/23/19 Rx iron) tablet multivitamin 1 cap PO QAM #90 cap 09/11/19 09/23/19 Rx potassium chloride 10 mEq 10 meq PO QAM #90 tab 09/18/19 09/23/19 Rx tablet,extended release Past Med/Surg History Medical History Anemia Chronic kidney disease, stage IV (severe) Chronic lymphocytic leukemia under surveillance by oncology s/p 5 chemo cycles (completed 11/2018) Former smoker Gastroesophageal reflux disease History of blood transfusion remote, post-op Hyperparathyroidism Hypertension Non-ST elevation FL (NSTEMI) (Inactive) Osteoarthritis Pancytopenia (Acute) Right bundle branch block Salmonella Supraclavicular adenopathy Thrombocytopenia Surgical History History of bilateral knee replacement (Resolved) History of carpal tunnel release of both wrists Hx of bilateral cataract extraction Hx of cholecystectomy S/P bronchoscopy with biopsy (05/25/19) Endobronchial Ultrasound Navigational Bronchoscopy with Biopsies Dr. Neville 05/25/19 - [facility] Family History Mother , 90yo Hypertension Stroke Myocardial infarction Diabetes Brother Lung cancer Mother Family history of diabetes mellitus Father , 89yo Myocardial infarction Brother Cancer Brother Cancer Social History Preferred Language: [place] Communication Ability: Effective Visual Impairment: No Limitations Hearing Ability: Normal Nurse First Aid Required: No Beliefs That Will Affect Care: None marital status: Current Living Situation: Alone current occupational status: retired current occupation: Cosmetology Other Information That Helps Us Care for You: No Feels Safe at Home: Yes Safety Concerns: Feels Safe At This Time Smoking Status: Former smoker Cigarettes Per Day: 1 pack/week;Smoked x 10yrs;Quit 1975 ; Second Hand Exposure: No ; Hx Alcohol Use: No Hx Substance Use: No caffeine: Yes (1 cup/day) during the past year weight has: decreased > 10 lbs Review of Systems Review of Systems: All systems reviewed & are unremarkable except as noted in HPI & below Physical Exam Constitutional: WD/WN, vitals as above + frail appearing and + lethargic Eyes: EOM intact bilaterally; no conjunctival abnormality ENMT: external ear and nose normal, oropharynx normal Neck: trachea midline, no thyromegaly normal visual inspection Respiratory: normal respiratory effort, lungs clear to auscultation no respiratory distress Cardiovascular: RRR, no murmur, no edema Gastrointestinal (Abdomen): Inspection/Auscultation: abdomen normal to inspection; abdomen not distended Musculoskeletal: no cyanosis or clubbing, extremities motor strength 5/5 Skin: no rashes, warm and dry Neurologic: moves all extremities and awake Psychiatric: Orientation: alert, oriented to person and cooperative Results & Data Vital Signs (Past 12 Hours) Vital Signs Temp Pulse Pulse Resp BP BP Pulse Ox 09/23/19 09:00 36.4 C L 79 18 146/72 H 99 09/23/19 07:00 85 18 128/74 99 09/23/19 05:22 86 14 123/68 98 09/23/19 03:27 86 09/23/19 01:37 36.7 C 98 H 12 133/66 100 Code Status & VTE Plan VTE Prophylaxis Plan VTE Prophylaxis will be ordered: Yes PG Care Time/CCT Total # of Minutes Spent Total Time Spent with Patient: Total time spent is greater than 50% in coordination of care (as documented) at patient's floor/unit and/or counseling patient: Coding Level of Care Code 97998 Initial Inpt Care Lvl 3 Diagnoses Diarrhea R19.7 Diarrhea type: unspecified type Chronic lymphocytic leukemia C91.90 Pancytopenia D61.818 Non-small cell cancer of left lung C34.92 CAD (coronary artery disease) I25.10 Hypertension I10 Hypertension type: essential hypertension CKD (chronic kidney disease) stage 3, GFR 30-59 ml/min N18.3 DVT prophylaxis Z29.9 (1) Diarrhea Diarrhea type: unspecified type Qualified Code(s): R19.7 - Diarrhea, unspecified (2) Hypertension Hypertension type: essential hypertension Qualified Code(s): I10 - Essential (primary) hypertension
--- NOTE | 2019-09-23 16:50 | Electrocardiogram Report ---
Test Reason : Blood Pressure : / mmHG Vent. Rate : 089 BPM Atrial Rate : 089 BPM P-R Int : 134 ms QRS Dur : 042 ms QT Int : 364 ms P-R-T Axes : 077 064 065 degrees QTc Int : 442 ms Normal sinus rhythm Low voltage QRS Incomplete right bundle branch block Abnormal ECG When compared with ECG of 03-SEP-2019 12:49, Right bundle branch block is no longer Present Confirmed by Henry Newberry ([id number]) on 09/23/2019 4:49:47 PM Referred By: REFERRED SELF Confirmed By:Lele Newberry
[2019-09-23] MEDS: CIPROFLOXACIN 400 MG/200 ML BAG IV SCH (17:09)
[2019-09-24 06:26] LABS: Hematocrit (blood only) 22.7 % (37-47); Hemoglobin 7.8 g/dL (12.0-16.0); Mean Corpuscular Hgb Conc 34.4 g/dL (32-36); RDW Standard Deviation 61.5 fL (36.4-46.3); Red Blood Count 2.44 M/uL (4.2-5.4)
[2019-09-24 06:47] LABS: Mean Platelet Volume 11.5 fL (7.4-10.4); Platelet Count 44 K/uL (130-400)
[2019-09-24 07:06] LABS: Albumin Level 2.1 gm/dl (3.4-5.0); BUN Creatinine Ratio 11.9 (10-20); Calcium 7.6 mg/dl (8.5-10.1); Creatinine Clr Calc Pharmacy 23.9 ml/min; Est GFR (African American) 43.3; Est GFR (Non-African American) 37.4; Magnesium 2.4 mg/dl (1.8-2.4)
[2019-09-24 07:07] LABS: Bilirubin,Total 0.4 mg/dl (0.2-1); Globulin 2.2 gm/dl (2.5-4.0); Phosphorus 3.8 mg/dl (2.5-4.9); Total Protein 4.3 gm/dl (6.4-8.2)
[2019-09-24] MEDS: ATENOLOL 25 MG TABLET PO SCH (08:01)
--- NOTE | 2019-09-24 09:03 | Consultation Report ---
DATE OF CONSULTATION: 09/24/2019 REASON FOR CONSULTATION: An 83-year-old -Portuguese female with history of chronic lymphocytic leukemia and nonsmall cell lung cancer admitted for intractable diarrhea. HISTORY OF PRESENT ILLNESS: Janneth is a very pleasant 83-year-old -Portuguese female well known to [facility], currently under my care with chronic lymphocytic leukemia and recently diagnosed with localized nonsmall cell lung cancer. The patient was admitted yesterday with intractable diarrhea and a presyncopal event. Apparently, Janneth had diarrhea for quite some time; however, she seems to be a little bit confused regarding her clinical presentation. She states to me that she has only had 1 diarrheal stools per day what she sounds a little unusual. As you recall, she was admitted a couple months prior with Salmonella based diarrhea and was effectively treated with antibiotics. My concern is the protracted pancytopenia ever since receiving combination bendamustine and rituximab in the summer of 2018. I have requested on multiple occasions to perform bone marrow biopsy and aspiration and Janneth has vehemently refused on each request. Nonetheless, she continues to live independently with her niece. Clinically, at bedside this morning, she actually looks quite well. She denies any fevers, chills or sweats. She readily admits to losing weight. Keep in mind, she was also recently diagnosed with localized nonsmall cell lung cancer and was considered for surgical resection, but unfortunately not a surgical candidate. The lung cancer diagnosis was established in 05/2019. Plan for stereotactic radiation is underway when the patient is medically stable. PAST MEDICAL HISTORY: Includes chronic lymphocytic leukemia, previous induction chemotherapy as prescribed above, gastroesophageal reflux disease, history of blood transfusion, hyperparathyroidism, hypertension, non-ST elevated myocardial infarction, osteoarthritis, pancytopenia, right bundle branch block, Salmonella diarrhea, supraclavicular adenopathy. PAST SURGICAL HISTORY: Bilateral knee replacement, carpal tunnel release, both wrists; bilateral cataracts, cholecystectomy, bronchoscopy with biopsy, navigational bronchoscopy with biopsies 05/25/2019. MEDICATIONS: Prior to admission include potassium chloride 10 mEq p.o. daily, multivitamin 1 tablet p.o. daily, ferrous sulfate 325 mg p.o. daily, atenolol 25 mg p.o. daily, Florastor 250 mg p.o. b.i.d. ALLERGIES: TO TRAMADOL. FAMILY HISTORY: Mother at age 90 from cardiovascular disease, stroke. Brother attributable to lung cancer. Father at age 89 from heart attack. She has 2 other brothers and have various cancers. SOCIAL HISTORY: Currently lives with her niece. She is a reformed smoker. Negative for illicit substances and alcohol. REVIEW OF SYSTEMS: Mainly for intractable diarrhea, weight loss. Her appetite remains quite good. GENERAL: She denies fevers, chills or sweats. SKIN: No rashes or lesions. No history of dermatoses. HEENT: She denies headaches, lightheadedness or dizziness at present. ____ presyncopal episode leading to admission. No acute visual or hearing deficits. No sinus symptoms, sore throat or dysphagia. LYMPHATICS: Positive for scattered lymphadenopathy attributable to lymphoproliferative disease. CARDIAC: Negative for angina or palpitations. PULMONARY: Negative for shortness of breath, dyspnea or orthopnea. No cough or hemoptysis. GASTROINTESTINAL: Negative for abdominal pain, nausea or vomiting. Positive for diarrhea. Negative for constipation, hematochezia or melena stools. GENITOURINARY: No hematuria, dysuria or urinary incontinence. PSYCHIATRIC: Negative for anxiety, depression or psychoses. ENDOCRINE: Negative for diabetes or thyroid disease. NEUROLOGIC: Negative for seizure, stroke, or migraine headache. HEMATOLOGIC: Positive for persistent pancytopenia. PHYSICAL EXAMINATION: GENERAL: A very pleasant 83-year-old -Portuguese female in no acute distress. VITAL SIGNS: Temperature 36.6, pulse 96, respiratory rate 20, blood pressure 193/55. SKIN: Without rash or lesion, no petechiae or ecchymosis. HEENT: Head is atraumatic, normocephalic. Eyes: PERRLA. EOMI. Sclerae nonicteric. No conjunctival injection. Nares patent without rhinorrhea or discharge. Throat is clear. Tongue is midline. Mucous membranes are moist. No buccal lesions or ulcerations. NECK: Supple without JVD or thyromegaly. LYMPH: No cervical, supraclavicular palpable nodes. HEART: Regular rate and rhythm. No clicks, rubs, murmurs, gallops. LUNGS: Clear to auscultation bilaterally. ABDOMEN: Soft, nontender, nondistended, without palpable hepatosplenomegaly. EXTREMITIES: No clubbing, cyanosis or edema. MUSCULOSKELETAL: Strength and pulses are equal in all 4 quadrants. NEUROLOGICALLY: She is awake, alert and oriented x3. Cranial nerves are grossly intact. RADIOGRAPHIC DATA: CT scan of the abdomen and pelvis done prior to admission. Spleen of normal size, suspected mild colitis, lytic changes bony structures that are similar from prior examinations, thought to be attributable to her CLL. LABORATORY DATA: WBC count 5000, hemoglobin 7.8, platelet count 43,000. Sodium 133, potassium 3.0, chloride 103, carbon dioxide 19, creatinine 1.3, BUN 15. IMPRESSION: 1. Intractable diarrhea, etiology unclear. 2. Electrolyte dysfunction attributable to #1. 3. Chronic lymphocytic leukemia by history. 4. Persistent pancytopenia. 5. Nonsmall cell lung cancer. 6. Hypertension. 7. History of coronary artery disease. 8. Chronic kidney disease. PLAN: I have been asked to see Janneth who is well known to CCP under my care for chronic lymphocytic leukemia. Earlier this summer, the patient received induction chemotherapy, specifically bendamustine and rituximab with decent response. Since the administration of chemotherapy; however, her counts have never fully recovered and despite multiple requests, Janneth has refused bone marrow biopsy and aspiration. She seems to be a bit more amenable to possible examination, but would like to do when she is out of the hospital. I have no problem with waiting as she's been pancytopenic for quite some time now. I would agree with the other consultants she has many comorbid issues, 83 years of age, I am not sure how aggressive we would proceed, but certainly I am interested to know what is going on with her bone marrow at present. For now, would focus more on diarrhea and her electrolyte dysfunction. Clinically, she actually looks quite well. I would be more than happy to expedient follow up if Janneth is willing to undergo the biopsy. Would also consider take a look at her chest to determine if lung cancer has progressed which I am sure it has. Apparently, plans are underway for her to receive palliative radiation therapy to the lung lesion. We will discuss further with Dr. Mike or Dr. Low moving forward. From a hematologic standpoint, really I have nothing further to add. For now, will continue to periodically see her during her stay. Thank you for allowing me to participate in her care. [facility]
--- NOTE | 2019-09-24 09:42 | Palliative Care Consultation ---
Date of Consultation September 24, 2019 Assessment & Plan (1) Goals of care, counseling/discussion: -83 year old female patient with CLL dx in 2011, non-small cell lung cancer diagnosed May 2019, presented to the hospital with diarrhea and near syncopal episode. This patient has had sever hospital admissions since May 2019, including in July and August. Patient was found to have Salmonella and has had this diarrhea for quite some time. She was likely undertreated for the Salmonella and is now back on abx-- infectious disease consulted. Patient is followed by thoracic surgery who stated patient is not a candidate for resection of the left apical lung lesion-- plan is for 15 sessions of stereotactic radiation therapy. Patient remains pancytopenic, but per her oncologist, has been refusing a bone marrow biopsy for quite some time now. Dr. Sweeney is consulted now, who states he is worried about progression of her disease. He would like to have this done sooner than later-- patient is now more amenable to this. Patient has been losing weight. She was about 58-59kg back in May, now is 50kg. Seems that she is weak and requiring more assistance. She lives home alone but has a niece who lives "a couple doors down," and helps out a good bit. Patient's other niece, Natalie Castillo, is her POA and takes care of patient's medical needs. Given patient's age and frailty, now two cancers and possible progression of disease, palliative care is consulted to discuss goals of care. -Met with patient this morning in room 281-2. She is AA&O x4. Pleasant, in no distress, denies any complaints of pain or SOB. Does c/o of ongoing diarrhea. -Patient states that she is willing to have bone marrow biopsy done-- mostly for prognostication purposes. She is aware that she now has multiple cancers and that she is requiring more help at home. Patient states they have been looking into assisted living vs. usp. -Janneth states that her niece Natalie Castillo is her POA, and another niece Janneth is the one who lives very close to her and helps out a lot. She gave me permission to speak to Natalie about all of her medical care and goals. Patient states her goal is to live comfortably. patient plans to go through with XRT of the lung lesion since it cannot be removed. She did confirm that she is a DNR/DNI. -Spoke with patient's niece Natalie on the phone at length. Natalie states that the family is aware that she needs usp-- they were hoping to get patient an apartment at [facility] in [place], [place], but they think her needs require more usp. She did request that a referral be made to [facility](window caser aware). -Natalie states that she has some concerns about patient's condition and is worried that there could be spread of her cancer. She would like the bone marrow biopsy done while patient is in-house-- I passed this message along to Dr. Sweeney. She also stated she would be interested in having further imaging of the chest done. Dr. Sweeney had also mentioned this in his note, so will follow up with him and the hospitalist physician about possible chest CT. -If patient's cancer is significantly progressing, Natalie states that patient may just decide to forego any further aggressive treatment and focus solely on comfort/quality of life. So these further tests would really help them with prognostication and making these decisions. Plan is for XRT to start on September 30, which patient and family are still wanting to go through with. -No symptom management needs at this time. -We will continue to follow along. (2) Diarrhea: Diarrhea type: unspecified type Qualified Code(s): R19.7 - Diarrhea, unspecified (3) Non-small cell cancer of left lung: (4) Chronic lymphocytic leukemia: Supervising Physician Co-Signing Physician Notes Chart reviewed, patient seen and examined, collaborated with PARISA Hu. PE: Patient comfortable, no acute distress Respirations: Unlabored CV: Regular rate Abdomen: Not distended Agree with above note, assessment and plan as per PARISA Hu will continue to follow and assist with medical decision making as needed. History of Present Illness Attending Physician: Andres Stock History of Present Illness This 83 year old female patient with CLL dx in 2011, non-small cell lung cancer diagnosed May 2019, presented to the hospital with diarrhea and near syncopal episode. This patient has had sever hospital admissions since May 2019, including in July and August. Patient was found to have Salmonella and has had this diarrhea for quite some time. She was likely undertreated for the Salmonella and is now back on abx-- infectious disease consulted. Patient is followed by thoracic surgery who stated patient is not a candidate for resection of the left apical lung lesion-- plan is for 15 sessions of stereotactic radiation therapy. Patient remains pancytopenic, but per her oncologist, has been refusing a bone marrow biopsy for quite some time now. Dr. Sweeney is consulted now, who states he is worried about progression of her disease. He would like to have this done sooner than later-- patient is now more amenable to this. Patient has been losing weight. She was about 58-59kg back in May, now is 50kg. Seems that she is weak and requiring more assistance. She lives home alone but has a niece who lives "a couple doors down," and helps out a good bit. Patient's other niece, Natalie Castillo, is her POA and takes care of patient's medical needs. Given patient's age and frailty, now two cancers and possible pr ogression of disease, palliative care is consulted to discuss goals of care. Thank you kindly for this consult. Palliative care team will follow as needed. Allergies Allergy/AdvReac Type Severity Reaction Status Date / Time codeine AdvReac Mild nausea Verified 09/23/19 02:03 tramadol AdvReac Mild GI upset, Verified 09/23/19 02:03 dizziness Home Medications Home Medications Medication Instructions Recorded Confirmed Type Saccharomyces boulardii [Florastor] 250 mg PO BID #20 cap 09/03/19 09/23/19 Rx atenolol 25 mg tablet 25 mg PO DAILY #30 tab 09/11/19 09/23/19 Rx ferrous sulfate 325 mg (65 mg 325 mg PO QAM #90 tab 09/11/19 09/23/19 Rx iron) tablet multivitamin 1 cap PO QAM #90 cap 09/11/19 09/23/19 Rx potassium chloride 10 mEq 10 meq PO QAM #90 tab 09/18/19 09/23/19 Rx tablet,extended release Patient History Medical History Anemia Chronic kidney disease, stage IV (severe) Chronic lymphocytic leukemia under surveillance by oncology s/p 5 chemo cycles (completed 11/2018) Former smoker Gastroesophageal reflux disease History of blood transfusion remote, post-op Hyperparathyroidism Hypertension Non-ST elevation [place] (NSTEMI) (Inactive) Osteoarthritis Pancytopenia (Acute) Right bundle branch block Salmonella Supraclavicular adenopathy Thrombocytopenia Surgical History History of bilateral knee replacement (Resolved) History of carpal tunnel release of both wrists Hx of bilateral cataract extraction Hx of cholecystectomy S/P bronchoscopy with biopsy (05/25/19) Endobronchial Ultrasound Navigational Bronchoscopy with Biopsies Dr. Neville 05/25/19 - [facility] Family History Mother , 90yo Hypertension Stroke Myocardial infarction Diabetes Brother Lung cancer Mother Family history of diabetes mellitus Father , 89yo Myocardial infarction Brother Cancer Brother Cancer Social History Preferred Language: Jordanian Communication Ability: Effective Visual Impairment: No Limitations Hearing Ability: Normal Rock Cutter Required: No Beliefs That Will Affect Care: None marital status: Current Living Situation: Alone current occupational status: retired current occupation: Cosmetology Other Information That Helps Us Care for You: No Feels Safe at Home: Yes Safety Concerns: Feels Safe At This Time Smoking Status: Former smoker Cigarettes Per Day: 1 pack/week;Smoked x 10yrs;Quit 1975 ; Second Hand Exposure: No ; Hx Alcohol Use: No Hx Substance Use: No caffeine: Yes (1 cup/day) during the past year weight has: decreased > 10 lbs Review of Systems Review of Systems: + mild weakness; + weight loss no SOB or cough no chest pain or edema no abdominal pain; no N/V; + diarrhea and bowel incontinence no confusion Physical Exam Constitutional: + thin and comfortable; no acute distress ENMT: external ear and nose normal, oropharynx normal Respiratory: normal respiratory effort, lungs clear to auscultation Cardiovascular: RRR, no murmur, no edema Gastrointestinal (Abdomen): Inspection/Auscultation: normal bowel sounds Percussion/Palpation: abdomen soft; abdomen nontender Skin: no rashes, warm and dry Neurologic: moves all extremities and awake; not confused Psychiatric: A+Ox3, euthymic affect Insight: good insight Results & Data Vital Signs (Past 12 Hours) Vital Signs Temp Pulse Resp BP BP Pulse Ox 09/24/19 07:19 36.6 C 96 H 20 93/55 L 98 09/24/19 03:52 36.4 C L 70 16 127/72 98 09/23/19 22:26 36.5 C 83 18 123/70 99 Coding Level of Care Code 76871 Inpt Consult Level 3 Diagnoses Goals of care, counseling/discussion Z71.89 Diarrhea R19.7 Diarrhea type: unspecified type Non-small cell cancer of left lung C34.92 Chronic lymphocytic leukemia C91.90 Time Spent (min) 70 Time Spent Midlevel 70 minutes with >50% of the time spent at bedside with patient and on phone with family discussing condition and GOC.
--- NOTE | 2019-09-24 09:53 | Infectious Disease Consult ---
Date of Consultation September 24, 2019 Supervising Physician Co-Signing Physician Notes unable to creat prolem list in [employer] as other user is in chart A/P: 1. UTI - will continue IV cipro for now, follow blood and urine cultures. History of Present Illness Attending Physician: Andres Stock pt admitted with abd pain, has had intermittent diarrhea since 07/2019. she previously tested + for salmonella in stool in July, then again in 2/3 urine culture. states abd pain resolved, no diarrhea currently, denies f/c. no gu symptoms, ua >30 wbc, 4+bacteria, growing gnr. she was previoulsy treated with cipro and now is on IV cipro, tolerating well. afebrile. no abd pain, no n/v/d. no cp, sob, cough. eating and drinking without difficulty. ct abd ? mild colitis, concern for disseminated salmonella. wbc 5 Allergies Allergy/AdvReac Type Severity Reaction Status Date / Time codeine AdvReac Mild nausea Verified 09/23/19 02:03 tramadol AdvReac Mild GI upset, Verified 09/23/19 02:03 dizziness Home Medications Home Medications Medication Instructions Recorded Confirmed Type Saccharomyces boulardii [Florastor] 250 mg PO BID #20 cap 09/03/19 09/23/19 Rx atenolol 25 mg tablet 25 mg PO DAILY #30 tab 09/11/19 09/23/19 Rx ferrous sulfate 325 mg (65 mg 325 mg PO QAM #90 tab 09/11/19 09/23/19 Rx iron) tablet multivitamin 1 cap PO QAM #90 cap 09/11/19 09/23/19 Rx potassium chloride 10 mEq 10 meq PO QAM #90 tab 09/18/19 09/23/19 Rx tablet,extended release Patient History Medical History Anemia Chronic kidney disease, stage IV (severe) Chronic lymphocytic leukemia under surveillance by oncology s/p 5 chemo cycles (completed 11/2018) Former smoker Gastroesophageal reflux disease History of blood transfusion remote, post-op Hyperparathyroidism Hypertension Non-ST elevation [place] (NSTEMI) (Inactive) Osteoarthritis Pancytopenia (Acute) Right bundle branch block Salmonella Supraclavicular adenopathy Thrombocytopenia Surgical History History of bilateral knee replacement (Resolved) History of carpal tunnel release of both wrists Hx of bilateral cataract extraction Hx of cholecystectomy S/P bronchoscopy with biopsy (05/25/19) Endobronchial Ultrasound Navigational Bronchoscopy with Biopsies Dr. Neville 05/25/19 - [facility] Family History Mother , 90yo Hypertension Stroke Myocardial infarction Diabetes Brother Lung cancer Mother Family history of diabetes mellitus Father , 89yo Myocardial infarction Brother Cancer Brother Cancer Social History Preferred Language: Hungarian Communication Ability: Effective Visual Impairment: No Limitations Hearing Ability: Normal Commissary Worker Required: No Beliefs That Will Affect Care: None marital status: Current Living Situation: Alone current occupational status: retired current occupation: Cosmetology Other Information That Helps Us Care for You: No Feels Safe at Home: Yes Safety Concerns: Feels Safe At This Time Smoking Status: Former smoker Cigarettes Per Day: 1 pack/week;Smoked x 10yrs;Quit 1975 ; Second Hand Exposure: No ; Hx Alcohol Use: No Hx Substance Use: No caffeine: Yes (1 cup/day) during the past year weight has: decreased > 10 lbs Review of Systems Review of Systems: All systems reviewed & are unremarkable except as noted in HPI & below Physical Exam Constitutional: WD/WN, vitals as above Eyes: PERRL, conjunctivae normal, anicteric sclerae ENMT: external ear and nose normal, oropharynx normal Neck: normal visual inspection Respiratory: normal respiratory effort, lungs clear to auscultation Cardiovascular: RRR, no murmur, no edema Gastrointestinal (Abdomen): normal bowel sounds, soft, nontender, no hepatosp lenomegaly Musculoskeletal: no cyanosis or clubbing, extremities motor strength 5/5 Skin: no rashes, warm and dry Psychiatric: A+Ox3, euthymic affect Results & Data ([facility]) Vital Signs (Past 12 Hours) Vital Signs Temp Pulse Resp BP BP Pulse Ox 09/24/19 07:19 36.6 C 96 H 20 93/55 L 98 09/24/19 03:52 36.4 C L 70 16 127/72 98 09/23/19 22:26 36.5 C 83 18 123/70 99 Laboratory Results Microbiology 09/23/19 06:20 Urine,Clean Catch Urine Culture - Preliminary Gram negative bacilli PG Care Time/CCT Total # of Minutes Spent Total Time Spent with Patient: Total time spent is greater than 50% in coordination of care (as documented) at patient's floor/unit and/or counseling patient: Coding Level of Care Code 02186 Inpt Consult Level 4
--- NOTE | 2019-09-24 11:45 | CT Scan Report ---
CT chest wo con CLINICAL HISTORY: non-small cell lung cancer-?progression of disease COMPARISON STUDY: August 24, 2019 CT DOSE: 158.77 mGycm TECHNIQUE: CT of the thorax was performed from the thoracic inlet to the lung bases. Images are revi ewed in the axial, sagittal, and coronal planes. IV contrast was not administered for this examinatio n. A dose lowering technique was utilized adhering to the principles of ALARA. FINDINGS: Thyroid: Again evident is a multinodular thyroid gland including a 2 cm left lobe thyroid nodule. Thoracic aorta: The thoracic aorta is normal in course and caliber, noting standard 3 vessel arch efrem ruben. Heart: The heart is normal in size and configuration, without pericardial effusion. Lungs and pleural spaces: No pleural effusions are visualized. There is a right middle lobe calcified granuloma. There is a persistent 35 x 21 x 15 mm left upper lobe masslike opacity. Lateral to this n odule is a 4 mm solid nodule similar to the prior study. There is a stable prominently groundglass 11 mm left upper lobe pulmonary nodule. There is a stable area of nodularity within the anteromedial as pect of the left upper lobe, likely postinflammatory. There are a few scattered pulmonary micronodule s. Mediastinum: There are stable calcified mediastinal lymph nodes, likely postinflammatory Lara: There is no pathologic hilar adenopathy given the limitations of a noncontrast study Axilla: Borderline enlarged right axillary lymph nodes remain stable. Upper abdomen: There is a stable indeterminate 8 mm right lobe hepatic hypodense lesion Skeletal structures: There is diffuse increased density of the thoracic vertebral bodies. There is st able abnormal trabecular pattern of the L2 vertebral body IMPRESSION: 1. No significant change in the size of a 35 x 21 x 15 mm left upper lobe masslike opacity 2. Persistent predominantly groundglass 11 mm left upper lobe pulmonary nodule 3. Slight enlargement the size of a 10 mm right upper lobe groundglass nodule. 4. Stable borderline enlarged right axillary lymph nodes. 5. Stable indeterminate 8 mm right lobe hepatic lesion 6. Indeterminate irregular trabecular pattern of the L2 vertebra. The other thoracic vertebral bodies remain diffusely sclerotic. ACT 112: Negative or not required by law. Electronically signed by: Harry Henderson M.D. 09/24/2019 11:43 AM
[2019-09-24] MEDS: POTASSIUM CHLORIDE / WTR 10 MEQ/100 ML PLCT IV SCH ×2 (13:14→14:15)
[2019-09-24] MEDS: POTASSIUM CHLORIDE PWD 20 MEQ PACK PO SCH ×2 (14:15→21:27)
[2019-09-24] MEDS: CIPROFLOXACIN 400 MG/200 ML BAG IV SCH (16:50)
--- NOTE | 2019-09-24 21:26 | Hospitalist Progress Note ---
Date of Service September 24, 2019 Assessment & Plan (1) Diarrhea: Has been having on/off diarrhea for several months. Stool with Salmonella - Group C in 07/2019. Seems to have waxed/waned since then. See the HPI from my H&P for her last 2 month time course. - Given the positive urine culture 2 months after initial diagnosis of Salmonella (and >1 month after finishing Cipro), I am worried she has disseminated Salmonella. Her 7-day course of Cipro could be an under-treated Salmonella infection. In immunocompetent patients, 7 days is adequate, but she is immunosuppressed from her CLL. - Stool, blood, and urine all re-cultured on admission prior to any abx given. - Empirically will cover Cipro. -Still awaiting cultures. (2) Chronic lymphocytic leukemia: Was originally diagnosed in 2011. Got 5 of 6 cycles of bendamustine and rituximab in the summer, but last cycle was stopped due to pancytopenia. - Due to continued pancytopenia, Dr. Sweeney was consulted during 07/2019 admission and counseled bone marrow biopsy which she declined. Again offered bone marrow biopsy as outpatient in 08/2019 and declined again. - Supportive care for blood counts (3) Pancytopenia: Likely due to CLL and possibly Salmonella infection. No indication of acute - will continue to monitor. 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 Neville in 05/2019. Initially plan had been for surgical resection, but her frailty, pancytopenia, and ongoing medical issues made her a poor surgical candidate. Now plan is for stereotactic body radiation with radiation oncology; however, from the patient's family description, and my read of the rad onc note, her tumor location makes this too risky. (Her family reports they were told of a risk of esophageal damage.) At present, it appears she will have to get more fractionated treatment. - Medical oncology consulted - Will get palliative care consult as well given she has multiple cancers that may/may not be amenable to be treated (5) CAD (coronary artery disease): Mildly elevated troponins (0.09 peak) in 07/2019, but otherwise don't see any history of CAD. Multiple cardiology notes do not reference any CAD. - Continue beta-jozef - Given anemia and thrombocytopenia, will avoid ASA (6) Hypertension: Has been dealing with orthostatic hypotension as an outpatient. BP meds have been taken off/reduced. Chlorthalidone was stopped for hypokalemia/hypomagnesemia. Atenolol was lowered as well. - Continue atenolol 25mg daily - Monitor BP (7) CKD (chronic kidney disease) stage 3, GFR 30-59 ml/min: Baseline Cr. ~1.2-1.5, eGFR 45. - At baseline on admission - Monitor Cr (8) DVT prophylaxis: SCDs - Patient is higher risk for DVT; however, with anemia and thrombocytopenia do not feel comfortable with heparin Admission and Anticipated Discharge Date Admission Date: September 23, 2019 Subjective Patient reports no new symptoms. Patient states here frequency of loose stools have improved. Review of Systems Review of Systems: All systems reviewed & are unremarkable except as noted in HPI & below Physical Exam Physical Exam: Constitutional: WD/WN, vitals as above + frail appearing and + lethargic Eyes: EOM intact bilaterally; no conjunctival abnormality ENMT: external ear and nose normal, oropharynx normal Neck: trachea midline, no thyromegaly normal visual inspection Respiratory: normal respiratory effort, lungs clear to auscultation no respiratory distress Cardiovascular: RRR, no murmur, no edema Gastrointestinal (Abdomen): Inspection/Auscultation: abdomen normal to inspection; abdomen not distended Musculoskeletal: no cyanosis or clubbing, extremities motor strength 5/5 Skin: no rashes, warm and dry Neurologic: moves all extremities and awake Psychiatric: Orientation: alert, oriented to person and cooperative Results & Data ([facility]) Vital Signs (Past 12 Hours) Vital Signs Temp Pulse Resp BP Pulse Ox 09/24/19 18:39 37.1 C 95 H 20 105/61 98 09/24/19 14:53 36.8 C 100 H 18 119/63 98 PG Care Time/CCT Total # of Minutes Spent Total Time Spent with Patient: Total time spent is greater than 50% in coordination of care (as documented) at patient's floor/unit and/or counseling patient: Coding Level of Care Code 66328 Subseq Hosp Care Lvl 3 Diagnoses Diarrhea R19.7 Diarrhea type: unspecified type Chronic lymphocytic leukemia C91.90 Pancytopenia D61.818 Non-small cell cancer of left lung C34.92 CAD (coronary artery disease) I25.10 Hypertension I10 Hypertension type: essential hypertension CKD (chronic kidney disease) stage 3, GFR 30-59 ml/min N18.3 DVT prophylaxis Z29.9 Time Spent (min) 35 (1) Diarrhea Diarrhea type: unspecified type Qualified Code(s): R19.7 - Diarrhea, unspecified (2) Hypertension Hypertension type: essential hypertension Qualified Code(s): I10 - Essential (primary) hypertension
[2019-09-25] MEDS: POTASSIUM CHLORIDE PWD 20 MEQ PACK PO SCH ×3 (08:05→20:53)
[2019-09-25] MEDS: ATENOLOL 25 MG TABLET PO SCH (08:05)
--- NOTE | 2019-09-25 10:14 | Palliative Care Progress Note ---
Date of Service September 25, 2019 Assessment & Plan (1) Goals of care, counseling/discussion: -Plan is for patient to go to [facility] upon discharge pending their bed availability-- referral has been made. -Spoke with patient and her niece/POA Natalie yesterday-- patient now more willing to have bone marrow biopsy. CT chest obtained yesterday which showed some mild enlargement of of RUL and DON ground glass nodules, otherwise persistent findings. -Hospitalist considering getting GI involved for ongoing diarrhea despite treatment of the Salmonella. -In conversation yesterday with Natalie, it sounds like patient/family would not want to be extremely aggressive if jin's cancer is progressing, but still uncertain. Will depend on biopsy findings and discussion with heme/onc. This conversation may need to happen once patient is discharged and seen as an outpatient. -For now, we will continue to follow. (2) Diarrhea: (3) Non-small cell cancer of left lung: (4) Chronic lymphocytic leukemia: Subjective Patient is awake and alert this morning. still having diarrhea. Review of Systems Review of Systems: + mild weakness; + weight loss no SOB or cough no chest pain or edema no abdominal pain; no N/V; + diarrhea and bowel incontinence no confusion Physical Exam Constitutional: + thin and comfortable; no acute distress ENMT: external ear and nose normal, oropharynx normal Respiratory: normal respiratory effort, lungs clear to auscultation Cardiovascular: RRR, no murmur, no edema Gastrointestinal (Abdomen): Inspection/Auscultation: normal bowel sounds Percussion/Palpation: abdomen soft; abdomen nontender Skin: no rashes, warm and dry Neurologic: moves all extremities and awake; not confused Psychiatric: A+Ox3, euthymic affect Insight: good insight Results & Data Vital Signs (Past 12 Hours) Vital Signs Temp Pulse Resp BP BP Pulse Ox 09/25/19 07:56 36.6 C 89 18 93/60 L 98 09/25/19 04:35 36.6 C 86 20 109/62 98 09/25/19 00:17 36.8 C 93 H 20 97/57 L 97 Coding Level of Care Code 65293 Subseq Hosp Care Lvl 2 Diagnoses Goals of care, counseling/discussion Z71.89 Diarrhea R19.7 Diarrhea type: unspecified type Non-small cell cancer of left lung C34.92 Chronic lymphocytic leukemia C91.90 Time Spent (min) 25 Time Spent Midlevel 25 minutes with >50% of the time spent at bedside with patient and IDT discussing condition and plan of care. (1) Diarrhea Diarrhea type: unspecified type Qualified Code(s): R19.7 - Diarrhea, unspecified
[2019-09-25 11:27] LABS: Hematocrit (blood only) 20.5 % (37-47); Mean Corpuscular Hemoglobin 31.7 pg (25-34); Mean Corpuscular Hgb Conc 34.1 g/dL (32-36); Mean Corpuscular Volume 92.8 fL (80-100); Mean Platelet Volume 9.6 fL (7.4-10.4); Platelet Count 34 K/uL (130-400); RDW Coefficient of Variation 18.4 % (11.5-14.5); RDW Standard Deviation 62.6 fL (36.4-46.3); Red Blood Count 2.21 M/uL (4.2-5.4); White Blood Count 2.94 K/uL (4.8-10.8)
[2019-09-25 11:42] LABS: BUN Creatinine Ratio 11.6 (10-20); Calcium 8.2 mg/dl (8.5-10.1); Creatinine Clr Calc Pharmacy 19.5 ml/min; Est GFR (Non-African American) 29.3; Potassium 3.9 mmol/L (3.5-5.1)
--- NOTE | 2019-09-25 11:50 | Hospitalist Progress Note ---
Date of Service September 25, 2019 Assessment & Plan (1) Diarrhea: Has been having on/off diarrhea for several months. Stool with Salmonella - Group C in 07/2019. Seems to have waxed/waned since then. See the HPI from my H&P for her last 2 month time course. - Given the positive urine culture 2 months after initial diagnosis of Salmonella (and >1 month after finishing Cipro), I am worried she has disseminated Salmonella. Her 7-day course of Cipro could be an under-treated Salmonella infection. In immunocompetent patients, 7 days is adequate, but she is immunosuppressed from her CLL. - Stool, blood, and urine all re-cultured on admission prior to any abx given. - Cultures are back. Not sensitive to cipro -Started ceftriaxone (2) Chronic lymphocytic leukemia: Was originally diagnosed in 2011. Got 5 of 6 cycles of bendamustine and rituximab in the summer, but last cycle was stopped due to pancytopenia. - Due to continued pancytopenia, Dr. Sweeney was consulted during 07/2019 admission and counseled bone marrow biopsy which she declined. Again offered bone marrow biopsy as outpatient in 08/2019 and declined again. - Supportive care for blood counts (3) Pancytopenia: Likely due to CLL and possibly Salmonella infection. No indication of acute - will continue to monitor. -Obtained consent. Ordered 2 units of PRBC due to hemoglobin being 7. 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 Neville in 05/2019. Initially plan had been for surgical resection, but her frailty, pancytopenia, and ongoing medical issues made her a poor surgical candidate. Now plan is for stereotactic body radiation with radiation oncology; however, from the patient's family description, and my read of the rad onc note, her tumor location makes this too risky. (Her family reports they were told of a risk of esophageal damage.) At present, it appears she will have to get more fractionated treatment. - Medical oncology consulted - Will get palliative care consult as well given she has multiple cancers that may/may not be amenable to be treated (5) CAD (coronary artery disease): Mildly elevated troponins (0.09 peak) in 07/2019, but otherwise don't see any history of CAD. Multiple cardiology notes do not reference any CAD. - Continue beta-jozef - Given anemia and thrombocytopenia, will avoid ASA (6) Hypertension: Has been dealing with orthostatic hypotension as an outpatient. BP meds have been taken off/reduced. Chlorthalidone was stopped for hypokalemia/hypomagnesemia. Atenolol was lowered as well. - Continue atenolol 25mg daily - Monitor BP (7) CKD (chronic kidney disease) stage 3, GFR 30-59 ml/min: Baseline Cr. ~1.2-1.5, eGFR 45. - At baseline on admission - Monitor Cr (8) DVT prophylaxis: SCDs - Patient is higher risk for DVT; however, with anemia and thrombocytopenia do not feel comfortable with heparin Admission and Anticipated Discharge Date Admission Date: September 23, 2019 Subjective 83 yo female reports her stools have remained loose, but frequency has decreased, She has had 3 stools in past 36 hours. She also reports having fatigue. Review of Systems Review of Systems: All systems reviewed & are unremarkable except as noted in HPI & below Physical Exam Physical Exam: Constitutional: WD/WN, vitals as above + frail appearing and + lethargic Eyes: EOM intact bilaterally; no conjunctival abnormality ENMT: external ear and nose normal, oropharynx normal Neck: trachea midline, no thyromegaly normal visual inspection Respiratory: normal respiratory effort, lungs clear to auscultation no respiratory distress Cardiovascular: RRR, no murmur, no edema Gastrointestinal (Abdomen): Inspection/Auscultation: abdomen normal to inspection; abdomen not distended Musculoskeletal: no cyanosis or clubbing, extremities motor strength 5/5 Skin: no rashes, warm and dry Neurologic: moves all extremities and awake Psychiatric: Orientation: alert, oriented to person and cooperative Results & Data ([facility]) Vital Signs (Past 12 Hours) Vital Signs Temp Pulse Resp BP BP Pulse Ox 09/25/19 07:56 36.6 C 89 18 93/60 L 98 09/25/19 04:35 36.6 C 86 20 109/62 98 09/25/19 00:17 36.8 C 93 H 20 97/57 L 97 PG Care Time/CCT Total # of Minutes Spent Total Time Spent with Patient: Total time spent is greater than 50% in coordination of care (as documented) at patient's floor/unit and/or counseling patient: Coding Level of Care Code 56687 Subseq Hosp Care Lvl 3 Diagnoses Diarrhea R19.7 Diarrhea type: unspecified type Chronic lymphocytic leukemia C91.90 Pancytopenia D61.818 Non-small cell cancer of left lung C34.92 CAD (coronary artery disease) I25.10 Hypertension I10 Hypertension type: essential hypertension CKD (chronic kidney disease) stage 3, GFR 30-59 ml/min N18.3 DVT prophylaxis Z29.9 Time Spent (min) 35 (1) Diarrhea Diarrhea type: unspecified type Qualified Code(s): R19.7 - Diarrhea, unspecified (2) Hypertension Hypertension type: essential hypertension Qualified Code(s): I10 - Essential (primary) hypertension
[2019-09-25] MEDS ORDERED: SODIUM CHLORIDE 0.9% 250 ML IV PRN (11:51)
[2019-09-25 11:54] LABS: Eosinophils # (auto) 0.01 K/uL (0-0.5); Eosinophils % (auto) 0.3 %; Immature Granulocytes # (auto) 0.18 K/uL (0.00-0.02); Immature Granulocytes % (auto) 6.1 %; Lymphocytes # (auto) 0.63 K/uL (1.2-3.4); Lymphocytes % (auto) 21.4 %; Monocytes # (auto) 0.44 K/uL (0.11-0.59); Neutrophils # (auto) 1.68 K/uL (1.4-6.5); Neutrophils % (auto) 57.2 %; Ovalocytes 1+; Schistocytes Occasional; Spherocytes 1+
--- NOTE | 2019-09-25 12:20 | Infectious Disease Progress Nt ---
Date of Service September 25, 2019 Assessment & Plan (1) Salmonella enteritis: continue on rocpehin for now, follow blood cultures, negative to date. Suspect she may have had cipro resisistant strain in past leading to persistence in + cultures from stool and from urine. she is afebrile and blood cultures are negative so far. due to immunocomprised state I agree she would benefit from longer course of abx. If blood cultures remain negative and she improves clinically, would suggest d/c home on amox tid - would give 3 weeks total. Admission and Anticipated Discharge Date Admission Date: September 23, 2019 Subjective pt changed to rocephin due to reported quinolone resistance. afebrile overnight. blood cultures remain negative, urine and stool cultures again growing Salmonella. Results & Data ([facility]) Vital Signs (Past 12 Hours) Vital Signs Temp Pulse Resp BP BP Pulse Ox 09/25/19 07:56 36.6 C 89 18 93/60 L 98 09/25/19 04:35 36.6 C 86 20 109/62 98 09/25/19 00:17 36.8 C 93 H 20 97/57 L 97 Laboratory Results Microbiology 09/23/19 06:20 Urine,Clean Catch Urine Culture - Final Salmonella species 09/23/19 10:45 Stool Escherichia coli Shiga Toxins Test - Preliminary 09/23/19 10:45 Stool Stool Culture - Preliminary Salmonella species - group C 09/23/19 12:41 Blood Aerobic Blood Culture - Preliminary No growth in Aerobic bottle after 24 hours. 09/23/19 12:41 Blood Anaerobic Blood Culture - Preliminary No growth in Anaerobic bottle after 24 hours. 09/23/19 03:13 Blood Aerobic Blood Culture - Preliminary No growth in Aerobic bottle after 24 hours. 09/23/19 03:13 Blood Anaerobic Blood Culture - Preliminary No growth in Anaerobic bottle after 24 hours. PG Care Time/CCT Total # of Minutes Spent Total Time Spent with Patient: Total time spent is greater than 50% in coordination of care (as documented) at patient's floor/unit and/or counseling patient: Coding Level of Care Code 14281 Subseq Hosp Care Lvl 1 Diagnoses Salmonella enteritis A02.0
[2019-09-25 12:28] LABS: Ferritin 7257.7 ng/ml (8-388)
[2019-09-25] MEDS: cefTRIAXone SODIUM 1,000 MG in DEXTROSE 5% 50 ML IV SCH (12:49)
[2019-09-25] MEDS: ACETAMINOPHEN 325 MG TAB PO PRN (20:51)
[2019-09-26] MEDS: ACETAMINOPHEN 325 MG TAB PO PRN ×2 (03:10→13:18)
[2019-09-26] MEDS: ATENOLOL 25 MG TABLET PO SCH (08:14)
[2019-09-26] MEDS: POTASSIUM CHLORIDE PWD 20 MEQ PACK PO SCH (08:14)
[2019-09-26 12:54] LABS: BUN Creatinine Ratio 12.8 (10-20); Calcium 7.8 mg/dl (8.5-10.1); Creatinine Clr Calc Pharmacy 21.9 ml/min; Est GFR (African American) 38.9; Est GFR (Non-African American) 33.6; Potassium 3.4 mmol/L (3.5-5.1)
[2019-09-26] MEDS: cefTRIAXone SODIUM 1,000 MG in DEXTROSE 5% 50 ML IV SCH (12:56)
[2019-09-26 13:00] LABS: Mean Corpuscular Hgb Conc 35.5 g/dL (32-36)
[2019-09-26 13:21] LABS: Echinocytes 1+; Eosinophils # (auto) 0.03 K/uL (0-0.5); Eosinophils % (auto) 1.4 %; Hematocrit (blood only) 35.8 % (37-47); Hemoglobin 12.7 g/dL (12.0-16.0); Immature Granulocytes # (auto) 0.14 K/uL (0.00-0.02); Immature Granulocytes % (auto) 6.3 %; Lymphocytes # (auto) 0.49 K/uL (1.2-3.4); Lymphocytes % (auto) 22.2 %; Mean Corpuscular Hemoglobin 31.1 pg (25-34); Mean Corpuscular Volume 87.7 fL (80-100); Monocytes # (auto) 0.34 K/uL (0.11-0.59); Monocytes % (auto) 15.4 %; Neutrophils # (auto) 1.21 K/uL (1.4-6.5); Neutrophils % (auto) 54.7 %; Nucleated RBC # (auto) 0.02 K/uL (0-0); Nucleated RBC % (auto) 0.9 %; Platelet Count 32 K/uL (130-400); Platelet Estimate SIGNIFIC DECREASED (Normal); RDW Coefficient of Variation 17.3 % (11.5-14.5); RDW Standard Deviation 53.9 fL (36.4-46.3); Red Blood Count 4.08 M/uL (4.2-5.4); White Blood Count 2.21 K/uL (4.8-10.8)
--- NOTE | 2019-09-26 21:55 | Hospitalist Progress Note ---
Date of Service September 26, 2019 Assessment & Plan (1) Diarrhea: Has been having on/off diarrhea for several months. Stool with Salmonella - Group C in 07/2019. Seems to have waxed/waned since then. See the HPI from my H&P for her last 2 month time course. - Given the positive urine culture 2 months after initial diagnosis of Salmonella (and >1 month after finishing Cipro), I am worried she has disseminated Salmonella. Her 7-day course of Cipro could be an under-treated Salmonella infection. In immunocompetent patients, 7 days is adequate, but she is immunosuppressed from her CLL. - Stool, blood, and urine all re-cultured on admission prior to any abx given. - Cultures are back. Not sensitive to cipro -Placed on cipro on 09/25 -Will continue, and will titrate to amoxicillin on discharge. (2) Chronic lymphocytic leukemia: Was originally diagnosed in 2011. Got 5 of 6 cycles of bendamustine and rituximab in the summer, but last cycle was stopped due to pancytopenia. - Due to continued pancytopenia, Dr. Sweeney was consulted during 07/2019 admission and counseled bone marrow biopsy which she declined. Again offered bone marrow biopsy as outpatient in 08/2019 and declined again. - Supportive care for blood counts (3) Pancytopenia: Likely due to CLL and possibly Salmonella infection. No indication of acute - will continue to monitor. -hemoglobin improved appropriately. 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 Neville in 05/2019. Initially plan had been for surgical resection, but her frailty, pancytopenia, and ongoing medical issues made her a poor surgical candidate. Now plan is for stereotactic body radiation with radiation oncology; however, from the patient's family description, and my read of the rad onc note, her tumor location makes this too risky. (Her family reports they were told of a risk of esophageal damage.) At present, it appears she will have to get more fractionated treatment. - Medical oncology consulted - Will get palliative care consult as well given she has multiple cancers that may/may not be amenable to be treated (5) CAD (coronary artery disease): Mildly elevated troponins (0.09 peak) in 07/2019, but otherwise don't see any history of CAD. Multiple cardiology notes do not reference any CAD. - Continue beta-jozef - Given anemia and thrombocytopenia, will avoid ASA (6) Hypertension: Has been dealing with orthostatic hypotension as an outpatient. BP meds have been taken off/reduced. Chlorthalidone was stopped for hypokalemia/hypomagnesemia. Atenolol was lowered as well. - Continue atenolol 25mg daily - Monitor BP (7) CKD (chronic kidney disease) stage 3, GFR 30-59 ml/min: Baseline Cr. ~1.2-1.5, eGFR 45. - At baseline on admission - Monitor Cr (8) DVT prophylaxis: SCDs - Patient is higher risk for DVT; however, with anemia and thrombocytopenia do not feel comfortable with heparin Admission and Anticipated Discharge Date Admission Date: September 23, 2019 Subjective 83 yo female reports feeling improvement. Patient states that her stools are more formed and she did not have any BM this morning. Her last BM was the day prior. Review of Systems Review of Systems: All systems reviewed & are unremarkable except as noted in HPI & below Physical Exam Physical Exam: Constitutional: WD/WN, vitals as above + frail appearing and + lethargic Eyes: EOM intact bilaterally; no conjunctival abnormality ENMT: external ear and nose normal, oropharynx normal Neck: trachea midline, no thyromegaly normal visual inspection Respiratory: normal respiratory effort, lungs clear to auscultation no respiratory distress Cardiovascular: RRR, no murmur, no edema Gastrointestinal (Abdomen): Inspection/Auscultation: abdomen normal to inspection; abdomen not distended Musculoskeletal: no cyanosis or clubbing, extremities motor strength 5/5 Skin: no rashes, warm and dry Neurologic: moves all extremities and awake Psychiatric: Orientation: alert, oriented to person and cooperative Results & Data ([facility]) Vital Signs (Past 12 Hours) Vital Signs Temp Pulse Resp BP BP Pulse Ox 09/26/19 19:36 36.6 C 69 22 115/70 99 09/26/19 15:29 36.4 C L 61 20 122/78 98 09/26/19 12:13 36.4 C L 70 18 128/81 99 PG Care Time/CCT Total # of Minutes Spent Total Time Spent with Patient: Total time spent is greater than 50% in coordination of care (as documented) at patient's floor/unit and/or counseling patient: Coding Level of Care Code 02313 Subseq Hosp Care Lvl 3 Diagnoses Diarrhea R19.7 Diarrhea type: unspecified type Chronic lymphocytic leukemia C91.90 Pancytopenia D61.818 Non-small cell cancer of left lung C34.92 CAD (coronary artery disease) I25.10 Hypertension I10 Hypertension type: essential hypertension CKD (chronic kidney disease) stage 3, GFR 30-59 ml/min N18.3 DVT prophylaxis Z29.9 Time Spent (min) 35 (1) Diarrhea Diarrhea type: unspecified type Qualified Code(s): R19.7 - Diarrhea, unspecified (2) Hypertension Hypertension type: essential hypertension Qualified Code(s): I10 - Essential (primary) hypertension
[2019-09-27] MEDS: ATENOLOL 25 MG TABLET PO SCH (07:41)
--- NOTE | 2019-09-27 09:13 | Progress Note ---
DATE: 09/27/2019 DIAGNOSES: 1. Intractable diarrhea, etiology unclear. 2. Electrolyte dysfunction attributable to #1. 3. Chronic lymphocytic leukemia by history. 4. Refractory pancytopenia. 5. Nonsmall cell lung cancer. 6. Hypertension. 7. Chronic kidney disease. SUBJECTIVE: Janneth was seen and examined at bedside this morning. Again, she is a pleasant 83-year-old -[place] female well known to [facility] with new diagnosis of nonsmall cell lung cancer and CLL. The patient states that her diarrhea and the belly pain have improved. She continues to receive symptomatic medications and IV fluid. The patient has agreed for subsequent bone marrow biopsy and aspiration, which I prefer to do as outpatient. Janneth is agreeable to following up in the office. She voices no concerns in pain or discomfort. Nursing reports no overnight difficulties otherwise. OBJECTIVE: GENERAL: A very pleasant 83-year-old -[place] female in no acute distress. VITAL SIGNS: Temperature 36.5, pulse 82, respiratory rate 18, blood pressure 127/84. SKIN: Without rash or lesion. HEENT: Oral mucosa without erythema or ulceration. NECK: Supple. HEART: Regular rate and rhythm. LUNGS: Clear to auscultation bilaterally. ABDOMEN: Soft, nontender, nondistended. EXTREMITIES: No clubbing, cyanosis or edema. NEUROLOGICAL: Grossly intact. LABORATORY DATA: WBC count 2210, hemoglobin 12.7, platelet count 32,000. Absolute neutrophil count 1200. Sodium 134, potassium 3.4, chloride 105, carbon dioxide 25, creatinine 1.42, BUN 18. IMPRESSION: 1. Intractable diarrhea. 2. Refractory pancytopenia. 3. Nonsmall cell lung cancer (left lung). 4. Chronic lymphocytic leukemia by history. PLAN: I spoke to Janneth at length today. Again, advised her that I just generally do not do bone marrow biopsies and aspirations during inpatient stay unless if absolutely emergent to do so. Janneth's counts have been faltering over the past several months and attempted to do biopsy in the past, which she declined. She is now agreeable to have biopsy done and willing to do it in the outpatient setting. I believe the radiation is planned for the patient's nonsmall cell lung cancer. As long as she is medically stable and diarrhea has subsided, I see no reason why she cannot be discharged in the next day or two. Again, we will make arrangements to have Janneth in the office in next week or two. We will officially sign off at this point. Thank you very much for allowing me to participate in her care. VALERIE
[2019-09-27 10:15] LABS: Mean Corpuscular Hgb Conc 35.5 g/dL (32-36)
[2019-09-27 10:43] LABS: Hematocrit (blood only) 35.8 % (37-47); Hemoglobin 12.7 g/dL (12.0-16.0); Mean Corpuscular Hemoglobin 31.3 pg (25-34); Mean Corpuscular Volume 88.2 fL (80-100); Platelet Count 35 K/uL (130-400); Platelet Estimate SIGNIFIC DECREASED (Normal); RDW Coefficient of Variation 17.1 % (11.5-14.5); RDW Standard Deviation 54.7 fL (36.4-46.3); Red Blood Count 4.06 M/uL (4.2-5.4); White Blood Count 1.46 K/uL (4.8-10.8)
[2019-09-27 10:52] LABS: BUN Creatinine Ratio 14.7 (10-20); Calcium 7.8 mg/dl (8.5-10.1); Creatinine Clr Calc Pharmacy 24.2 ml/min; Est GFR (African American) 44.1; Est GFR (Non-African American) 38.1; Potassium 3.1 mmol/L (3.5-5.1)
[2019-09-27] MEDS: cefTRIAXone SODIUM 1,000 MG in DEXTROSE 5% 50 ML IV SCH (13:00)
[2019-09-27] MEDS: ACETAMINOPHEN 325 MG TAB PO PRN (21:17)
--- NOTE | 2019-09-27 22:16 | Hospitalist Progress Note ---
Date of Service September 27, 2019 Assessment & Plan (1) Diarrhea: Has been having on/off diarrhea for several months. Stool with Salmonella - Group C in 07/2019. Seems to have waxed/waned since then. See the HPI from my H&P for her last 2 month time course. - Given the positive urine culture 2 months after initial diagnosis of Salmonella (and >1 month after finishing Cipro), I am worried she has disseminated Salmonella. Her 7-day course of Cipro could be an under-treated Salmonella infection. In immunocompetent patients, 7 days is adequate, but she is immunosuppressed from her CLL. - Stool, blood, and urine all re-cultured on admission prior to any abx given. - Cultures are back. Not sensitive to cipro -Placed on ceftriaxone on 09/25 -Patient appears to be improving finally. Likely cause of the problem was the resistance to the flouroquinolone. -Will continue, and will titrate to amoxicillin on discharge. -Will continue for 3 weeks. Updated her niece, currently working on placement. (2) Chronic lymphocytic leukemia: Was originally diagnosed in 2011. Got 5 of 6 cycles of bendamustine and rituximab in the summer of 2018, but last cycle was stopped due to pancytopenia. - Due to continued pancytopenia, Dr. Sweeney was consulted during 07/2019 admission and counseled bone marrow biopsy which she declined. Again offered bone marrow biopsy as outpatient in 08/2019 and declined again. - Supportive care for blood counts (3) Pancytopenia: Likely due to CLL and possibly Salmonella infection. - will continue to monitor. -hemoglobin improved appropriately after transfusion (4) Non-small cell cancer of left lung: Diagnosed on endobronchial biopsy by Dr. Neville in 05/2019. Initially plan had been for surgical resection, but her frailty, pancytopenia, and ongoing medical issues made her a poor surgical candidate. Now plan is for stereotactic body radiation with radiation oncology; however, from the patient's family description, and my read of the rad onc note, her tumor location makes this too risky. (Her family reports they were told of a risk of esophageal damage.) At present, it appears she will have to get more fractionated treatment. - Medical oncology consulted - Will get palliative care consult as well given she has multiple cancers that may/may not be amenable to be treated (5) CAD (coronary artery disease): Mildly elevated troponins (0.09 peak) in 07/2019, but otherwise don't see any history of CAD. Multiple cardiology notes do not reference any CAD. - Continue beta-jozef - Given anemia and thrombocytopenia, will avoid ASA (6) Hypertension: Has been dealing with orthostatic hypotension as an outpatient. BP meds have been taken off/reduced. Chlorthalidone was stopped for hypokalemia/hypomagnesemia. Atenolol was lowered as well. - Continue atenolol 25mg daily - Monitor BP (7) CKD (chronic kidney disease) stage 3, GFR 30-59 ml/min: Baseline Cr. ~1.2-1.5, eGFR 45. - At baseline on admission - Monitor Cr (8) DVT prophylaxis: SCDs - Patient is higher risk for DVT; however, with anemia and thrombocytopenia do not feel comfortable with heparin Admission and Anticipated Discharge Date Admission Date: September 23, 2019 Subjective Patient reports her stools are more formed today. She states her only concern is that her appetite is low. Review of Systems Review of Systems: All systems reviewed & are unremarkable except as noted in HPI & below Physical Exam Physical Exam: Constitutional: WD/WN, vitals as above, more awake. Eyes: EOM intact bilaterally; no conjunctival abnormality ENMT: external ear and nose normal, oropharynx normal Neck: trachea midline, no thyromegaly normal visual inspection Respiratory: normal respiratory effort, lungs clear to auscultation no respiratory distress Cardiovascular: RRR, no murmur, no edema Gastrointestinal (Abdomen): Inspection/Auscultation: abdomen normal to inspection; abdomen not distended Musculoskeletal: no cyanosis or clubbing, extremities motor strength 5/5 Skin: no rashes, warm and dry Neurologic: moves all extremities and awake Psychiatric: Orientation: alert, oriented to person and cooperative Results & Data ([facility]) Vital Signs (Past 12 Hours) Vital Signs Temp Pulse Resp BP Pulse Ox 09/27/19 15:28 36.7 C 76 18 137/81 99 PG Care Time/CCT Total # of Minutes Spent Total Time Spent with Patient: Total time spent is greater than 50% in coordination of care (as documented) at patient's floor/unit and/or counseling patient: Coding Level of Care Code 95769 Subseq Hosp Care Lvl 2 Diagnoses Diarrhea R19.7 Diarrhea type: unspecified type Chronic lymphocytic leukemia C91.90 Pancytopenia D61.818 Non-small cell cancer of left lung C34.92 CAD (coronary artery disease) I25.10 Hypertension I10 Hypertension type: essential hypertension CKD (chronic kidney disease) stage 3, GFR 30-59 ml/min N18.3 DVT prophylaxis Z29.9 Time Spent (min) 30 (1) Diarrhea Diarrhea type: unspecified type Qualified Code(s): R19.7 - Diarrhea, unspecified (2) Hypertension Hypertension type: essential hypertension Qualified Code(s): I10 - Essential (primary) hypertension
[2019-09-28] MEDS: ATENOLOL 25 MG TABLET PO SCH (08:25)
[2019-09-28] MEDS: cefTRIAXone SODIUM 1,000 MG in DEXTROSE 5% 50 ML IV SCH (13:32)
--- NOTE | 2019-09-28 22:18 | Hospitalist Progress Note ---
Date of Service September 28, 2019 Assessment & Plan (1) Diarrhea: Has been having on/off diarrhea for several months. Stool with Salmonella - Group C in 07/2019. Seems to have waxed/waned since then. See the HPI from my H&P for her last 2 month time course. - Given the positive urine culture 2 months after initial diagnosis of Salmonella (and >1 month after finishing Cipro) - Cultures are back confirming Salmonella infection. Not sensitive to cipro which would explain why she had such a prolong clinical course. -Placed on ceftriaxone on 09/25 -Patient appears to be improving finally. Likely cause of the problem was the resistance to the flouroquinolone. -Will continue, and will titrate to amoxicillin on discharge. -Will continue for 3 weeks. Updated her niece, currently working on placement. (2) Chronic lymphocytic leukemia: Was originally diagnosed in 2011. Got 5 of 6 cycles of bendamustine and rituximab in the summer of 2018, but last cycle was stopped due to pancytopenia. - Due to continued pancytopenia, Dr. Sweeney was consulted during 07/2019 admission and counseled bone marrow biopsy which she declined. Again offered bone marrow biopsy as outpatient in 08/2019 and declined again. - Supportive care for blood counts (3) Pancytopenia: Likely due to CLL and possibly Salmonella infection. - will continue to monitor. -hemoglobin improved appropriately after transfusion (4) Non-small cell cancer of left lung: Diagnosed on endobronchial biopsy by Dr. Neville in 05/2019. Initially plan had been for surgical resection, but her frailty, pancytopenia, and ongoing medical issues made her a poor surgical candidate. Now plan is for stereotactic body radiation with radiation oncology; however, from the patient's family description, and my read of the rad onc note, her tumor location makes this too risky. (Her family reports they were told of a risk of esophageal damage.) At present, it appears she will have to get more fractionated treatment. - Medical oncology consulted - Will get palliative care consult as well given she has multiple cancers that may/may not be amenable to be treated (5) CAD (coronary artery disease): Mildly elevated troponins (0.09 peak) in 07/2019, but otherwise don't see any history of CAD. Multiple cardiology notes do not reference any CAD. - Continue beta-jozef - Given anemia and thrombocytopenia, will avoid ASA (6) Hypertension: Has been dealing with orthostatic hypotension as an outpatient. BP meds have been taken off/reduced. Chlorthalidone was stopped for hypokalemia/hypomagnesemia. Atenolol was lowered as well. - Continue atenolol 25mg daily - Monitor BP (7) CKD (chronic kidney disease) stage 3, GFR 30-59 ml/min: Baseline Cr. ~1.2-1.5, eGFR 45. - At baseline on admission - Monitor Cr (8) DVT prophylaxis: SCDs - Patient is higher risk for DVT; however, with anemia and thrombocytopenia do not feel comfortable with heparin Admission and Anticipated Discharge Date Admission Date: September 23, 2019 Subjective 83 yo female reports feeling well. She reports that her stools are formed. Review of Systems Review of Systems: All systems reviewed & are unremarkable except as noted in HPI & below Physical Exam Physical Exam: Constitutional: WD/WN, vitals as above, more awake. Eyes: EOM intact bilaterally; no conjunctival abnormality ENMT: external ear and nose normal, oropharynx normal Neck: trachea midline, no thyromegaly normal visual inspection Respiratory: normal respiratory effort, lungs clear to auscultation no respiratory distress Cardiovascular: RRR, no murmur, no edema Gastrointestinal (Abdomen): Inspection/Auscultation: abdomen normal to inspection; abdomen not distended Musculoskeletal: no cyanosis or clubbing, extremities motor strength 5/5 Skin: no rashes, warm and dry Neurologic: moves all extremities and awake Psychiatric: Orientation: alert, oriented to person and cooperative Results & Data ([facility]) Vital Signs (Past 12 Hours) Vital Signs Temp Pulse Resp BP Pulse Ox 09/28/19 15:04 36.2 C L 78 18 101/63 98 PG Care Time/CCT Total # of Minutes Spent Total Time Spent with Patient: Total time spent is greater than 50% in coordination of care (as documented) at patient's floor/unit and/or counseling patient: Coding Level of Care Code 25002 Subseq Hosp Care Lvl 2 Diagnoses Diarrhea R19.7 Diarrhea type: unspecified type Chronic lymphocytic leukemia C91.90 Pancytopenia D61.818 Non-small cell cancer of left lung C34.92 CAD (coronary artery disease) I25.10 Hypertension I10 Hypertension type: essential hypertension CKD (chronic kidney disease) stage 3, GFR 30-59 ml/min N18.3 DVT prophylaxis Z29.9 Time Spent (min) 25 (1) Diarrhea Diarrhea type: unspecified type Qualified Code(s): R19.7 - Diarrhea, unspecified (2) Hypertension Hypertension type: essential hypertension Qualified Code(s): I10 - Essential (primary) hypertension
--- NOTE | 2019-09-29 08:31 | Hospitalist Progress Note ---
Date of Service September 29, 2019 Assessment & Plan (1) Diarrhea: Has been having on/off diarrhea for several months. Stool with Salmonella - Group C in 07/2019. Seems to have waxed/waned since then. See the HPI from my H&P for her last 2 month time course. - Given the positive urine culture 2 months after initial diagnosis of Salmonella (and >1 month after finishing Cipro) - Cultures are back confirming Salmonella infection. Not sensitive to cipro which would explain why she had such a prolong clinical course. -Placed on ceftriaxone on 09/25 -Patient appears to be improving finally. Likely cause of the problem was the resistance to the flouroquinolone. -Will continue, and will titrate to amoxicillin on discharge. -Will continue for 3 weeks. Updated her niece, currently working on placement. (2) Chronic lymphocytic leukemia: Was originally diagnosed in 2011. Got 5 of 6 cycles of bendamustine and rituximab in the summer of 2018, but last cycle was stopped due to pancytopenia. - Due to continued pancytopenia, Dr. Sweeney was consulted during 07/2019 admission and counseled bone marrow biopsy which she declined. Again offered bone marrow biopsy as outpatient in 08/2019 and declined again. - Supportive care for blood counts (3) Pancytopenia: Likely due to CLL and possibly Salmonella infection. - will continue to monitor. -hemoglobin improved appropriately after transfusion -Hemoglobin at 12, (4) Non-small cell cancer of left lung: Diagnosed on endobronchial biopsy by Dr. Neville in 05/2019. Initially plan had been for surgical resection, but her frailty, pancytopenia, and ongoing medical issues made her a poor surgical candidate. Now plan is for stereotactic body radiation with radiation oncology; however, from the patient's family desc ription, and my read of the rad onc note, her tumor location makes this too risky. (Her family reports they were told of a risk of esophageal damage.) At present, it appears she will have to get more fractionated treatment. - Medical oncology consulted - Will get palliative care consult as well given she has multiple cancers that may/may not be amenable to be treated (5) CAD (coronary artery disease): Mildly elevated troponins (0.09 peak) in 07/2019, but otherwise don't see any history of CAD. Multiple cardiology notes do not reference any CAD. - Continue beta-jozef - Given anemia and thrombocytopenia, will avoid ASA (6) Hypertension: Has been dealing with orthostatic hypotension as an outpatient. BP meds have been taken off/reduced. Chlorthalidone was stopped for hypokalemia/hypomagnesemia. Atenolol was lowered as well. - Continue atenolol 25mg daily - Monitor BP (7) CKD (chronic kidney disease) stage 3, GFR 30-59 ml/min: Baseline Cr. ~1.2-1.5, eGFR 45. - At baseline on admission - Monitor Cr (8) DVT prophylaxis: SCDs - Patient is higher risk for DVT; however, with anemia and thrombocytopenia do not feel comfortable with heparin Admission and Anticipated Discharge Date Admission Date: September 23, 2019 Subjective Patient reports feeling better today. She states her stool are still soft, but they are forming. She denies any fever, chills, nausea, vomiting. She states she continues to have a low appetite. Review of Systems Review of Systems: All systems reviewed & are unremarkable except as noted in HPI & below Physical Exam Physical Exam: Constitutional: WD/WN, vitals as above, more awake. Eyes: EOM intact bilaterally; no conjunctival abnormality ENMT: external ear and nose normal, oropharynx normal Neck: trachea midline, no thyromegaly normal visual inspection Respiratory: normal respiratory effort, lungs clear to auscultation no respiratory distress Cardiovascular: RRR, no murmur, no edema Gastrointestinal (Abdomen): Inspection/Auscultation: abdomen normal to inspection; abdomen not distended Musculoskeletal: no cyanosis or clubbing, extremities motor strength 5/5 Skin: no rashes, warm and dry Neurologic: moves all extremities and awake Psychiatric: Orientation: alert, oriented to person and cooperative Results & Data ([facility]) Vital Signs (Past 12 Hours) Vital Signs Temp Pulse Resp BP Pulse Ox 09/29/19 07:40 36.9 C 78 18 111/69 98 09/28/19 23:49 37.1 C 82 20 127/71 97 PG Care Time/CCT Total # of Minutes Spent Total Time Spent with Patient: Total time spent is greater than 50% in co ordination of care (as documented) at patient's floor/unit and/or counseling patient: Coding Level of Care Code 67872 Subseq Hosp Care Lvl 2 Diagnoses Diarrhea R19.7 Diarrhea type: unspecified type Chronic lymphocytic leukemia C91.90 Pancytopenia D61.818 Non-small cell cancer of left lung C34.92 CAD (coronary artery disease) I25.10 Hypertension I10 Hypertension type: essential hypertension CKD (chronic kidney disease) stage 3, GFR 30-59 ml/min N18.3 DVT prophylaxis Z29.9 Time Spent (min) 25 (1) Diarrhea Diarrhea type: unspecified type Qualified Code(s): R19.7 - Diarrhea, unspecified (2) Hypertension Hypertension type: essential hypertension Qualified Code(s): I10 - Essential (primary) hypertension
[2019-09-29] MEDS: ATENOLOL 25 MG TABLET PO SCH (08:47)
[2019-09-29] MEDS: cefTRIAXone SODIUM 1,000 MG in DEXTROSE 5% 50 ML IV SCH (14:03)
[2019-09-29] MEDS: ACETAMINOPHEN 325 MG TAB PO PRN (23:28)
[2019-09-30] MEDS: ACETAMINOPHEN 325 MG TAB PO PRN (07:49)
--- NOTE | 2019-09-30 08:59 | Hospitalist Progress Note ---
Date of Service September 30, 2019 Assessment & Plan (1) Diarrhea: Has been having on/off diarrhea for several months. Stool with Salmonella - Group C in 07/2019. Seems to have waxed/waned since then. See the HPI from my H&P for her last 2 month time course. - Given the positive urine culture 2 months after initial diagnosis of Salmonella (and >1 month after finishing Cipro) - Cultures are back confirming Salmonella infection. Not sensitive to cipro which would explain why she had such a prolong clinical course. -Placed on ceftriaxone on 09/25 -Patient appears to be improving ON THIS. -Patient no longer having diarrhea and will need a one time dose of a stool softener. Likely cause of the problem was the resistance to the flouroquinolone. -Will continue, and will titrate to amoxicillin TID on discharge. -Will continue for a total of 3 weeks treatment. (2) Chronic lymphocytic leukemia: Was originally diagnosed in 2011. Got 5 of 6 cycles of bendamustine and rituximab in the summer, but last cycle was stopped due to pancytopenia. - Due to continued pancytopenia, Dr. Sweeney was consulted during 07/2019 admission and counseled bone marrow biopsy which she declined. Again offered bone marrow biopsy as outpatient in 08/2019 and declined again. - Supportive care for blood counts (3) Pancytopenia: Likely due to CLL and possibly Salmonella infection. - will continue to monitor. -hemoglobin improved appropriately after transfusion -Hemoglobin at 12, (4) Non-small cell cancer of left lung: Diagnosed on endobronchial biopsy by Dr. Neville in 05/2019. Initially plan had been for surgical resection, but her frailty, pancytopenia, and ongoing medical issues made her a poor surgical candidate. Now plan is for stereotactic body radiation with radiation oncology; however, from the patient's family description, and my read of the rad onc note, her tumor location makes this too risky. (Her family reports they were told of a risk of esophageal damage.) At present, it appears she will have to get more fractionated treatment. - Medical oncology consulted - Will get palliative care consult as well given she has multiple cancers that may/may not be amenable to be treated (5) CAD (coronary artery disease): Mildly elevated troponins (0.09 peak) in 07/2019, but otherwise don't see any history of CAD. Multiple cardiology notes do not reference any CAD. - Continue beta-jozef - Given anemia and thrombocytopenia, will avoid ASA (6) Hypertension: Has been dealing with orthostatic hypotension as an outpatient. BP meds have been taken off/reduced. Chlorthalidone was stopped for hypokalemia/hypomagnesemia. Atenolol was lowered as well. - Continue atenolol 25mg daily - Monitor BP (7) CKD (chronic kidney disease) stage 3, GFR 30-59 ml/min: Baseline Cr. ~1.2-1.5, eGFR 45. - At baseline on admission - Monitor Cr (8) Acute hypokalemia: will replace with IV potassium and oral potassium. will monitor. (9) DVT prophylaxis: SCDs - Patient is higher risk for DVT; however, with anemia and thrombocytopenia do not feel comfortable with heparin Admission and Anticipated Discharge Date Admission Date: September 23, 2019 Subjective Patient reports feeling well. Her main concern is that she feels constipated. She does not recall when she last had a bowel movement. Review of Systems Review of Systems: All systems reviewed & are unremarkable except as noted in HPI & below Physical Exam Physical Exam: Constitutional: WD/WN, vitals as above, more awake. Eyes: EOM intact bilaterally; no conjunctival abnormality ENMT: external ear and nose normal, oropharynx normal Neck: trachea midline, no thyromegaly normal visual inspection Respiratory: normal respiratory effort, lungs clear to auscultation no respiratory distress Cardiovascular: RRR, no murmur, no edema Gastrointestinal (Abdomen): Inspection/Auscultation: abdomen normal to inspection; abdomen not distended Musculoskeletal: no cyanosis or clubbing, extremities motor strength 5/5 Skin: no rashes, warm and dry Neurologic: moves all extremities and awake Psychiatric: Orientation: alert, oriented to person and cooperative Results & Data ([facility]) Vital Signs (Past 12 Hours) Vital Signs Temp Pulse Resp BP Pulse Ox 09/30/19 07:43 36.5 C 69 20 150/77 H 99 09/29/19 23:25 37.0 C 73 18 119/67 99 PG Care Time/CCT Total # of Minutes Spent Total Time Spent with Patient: Total time spent is greater than 50% in coordination of care (as documented) at patient's floor/unit and/or counseling patient: Coding Level of Care Code 01371 Subseq Hosp Care Lvl 2 Diagnoses Diarrhea R19.7 Diarrhea type: unspecified type Chronic lymphocytic leukemia C91.90 Pancytopenia D61.818 Non-small cell cancer of left lung C34.92 CAD (coronary artery disease) I25.10 Hypertension I10 Hypertension type: essential hypertension CKD (chronic kidney disease) stage 3, GFR 30-59 ml/min N18.3 Acute hypokalemia E87.6 DVT prophylaxis Z29.9 Time Spent (min) 25 (1) Diarrhea Diarrhea type: unspecified type Qualified Code(s): R19.7 - Diarrhea, unspecified (2) Hypertension Hypertension type: essential hypertension Qualified Code(s): I10 - Essential (primary) hypertension
[2019-09-30] MEDS ORDERED: DOCUSATE SODIUM/SENNA 50/8.6MG TAB PO ONE (09:00)
[2019-09-30 09:50] LABS: BUN Creatinine Ratio 22.4 (10-20); Calcium 7.6 mg/dl (8.5-10.1); Creatinine Clr Calc Pharmacy 30.7 ml/min; Est GFR (African American) 58.8; Est GFR (Non-African American) 50.7; Magnesium 1.2 mg/dl (1.8-2.4); Phosphorus 3.3 mg/dl (2.5-4.9); Potassium 2.8 mmol/L (3.5-5.1)
[2019-09-30 10:11] LABS: Hematocrit (blood only) 32.2 % (37-47); Hemoglobin 11.2 g/dL (12.0-16.0); Mean Corpuscular Hemoglobin 31.5 pg (25-34); Mean Corpuscular Hgb Conc 34.8 g/dL (32-36); Mean Corpuscular Volume 90.4 fL (80-100); Platelet Count 18 K/uL (130-400); Platelet Estimate SIGNIFIC DECREASED (Normal); RDW Coefficient of Variation 16.5 % (11.5-14.5); RDW Standard Deviation 54.3 fL (36.4-46.3); Red Blood Count 3.56 M/uL (4.2-5.4); White Blood Count 1.29 K/uL (4.8-10.8)
[2019-09-30] MEDS: ATENOLOL 25 MG TABLET PO SCH (11:25)
--- NOTE | 2019-09-30 13:17 | Progress Note ---
DATE: 09/30/2019 DIAGNOSES: 1. Intractable diarrhea. 2. Chronic lymphocytic leukemia. 3. Pancytopenia. 4. Nonsmall cell lung cancer. SUBJECTIVE: The patient was seen and examined at bedside this morning. Hospitalist service alerted me to the patient's platelet count approximately 18,000. Once again discussed the possibility of seeing her in the office for bone marrow biopsy and aspiration. The patient has waxed and waned in regards to her long-term goals for care moving forward. She is once again not enthusiastic about coming to Hematology for further workup. The patient is resigned to the fact that she will be discharged from [facility] and proceed to a long term in [facility]. I personally have no issue with her desires moving forward. She is 83 years of age and her thoughts are not unreasonable. She is now struggling with constipation and reportedly will receive laxatives today. Nursing reports no overnight difficulties otherwise. OBJECTIVE: GENERAL: A very pleasant -[place] 83-year-old female, in no acute distress. VITAL SIGNS: Temperature 36.5, pulse 69, respiratory rate 20, blood pressure 150/77. SKIN: Without rash or lesion. HEENT: Oral mucosa without erythema or ulceration. NECK: Supple. HEART: Regular rate and rhythm. LUNGS: Clear to auscultation bilaterally. ABDOMEN: Soft, nontender, nondistended without palpable hepatosplenomegaly. EXTREMITIES: No clubbing, cyanosis or edema. NEUROLOGIC: She is grossly intact. LABORATORY DATA: WBC count 1290, hemoglobin 11.2, platelet count 18,000. Sodium 138, potassium 2.8, chloride 109, carbon dioxide 23, BUN 23, creatinine 1.01, magnesium decreased at 1.2, calcium low at 7.6. IMPRESSION: 1. Residual electrolyte dysfunction. 2. Intractable diarrhea, which is converted to constipation. 3. Refractory pancytopenia. 4. Nonsmall cell lung cancer. 5. Chronic lymphocytic leukemia. PLAN: Dr. Stock alerted me to the patient's platelet count. Unfortunately, at the end of the day, the only way to figure out exactly what is going on is to perform bone marrow biopsy and aspiration. Discussed this again with the patient at bedside and now she is not in favor of any more diagnostics specifically bone marrow biopsy. In view of her multiple comorbid issues including the presence of lung cancer, she is 83 years of age. I would establish a palliative approach moving forward. We can continue to transfuse. I would replace her platelets today. In regards to her low white count, as long as she is not showing evidence for infection, would continue to observe. 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 Should she change her mind, I am always willing to follow up with her upon discharge. I had previously signed off, but decided to revisit the patient today just in case she has changed her mind which appears she has done so.
[2019-09-30] MEDS: POTASSIUM CHLORIDE 20 MEQ TABCR PO SCH ×2 (14:01→21:34)
[2019-09-30] MEDS: POTASSIUM CHLORIDE / WTR 10 MEQ/100 ML PLCT IV SCH ×4 (14:09→18:46)
[2019-09-30] MEDS: cefTRIAXone SODIUM 1,000 MG in DEXTROSE 5% 50 ML IV SCH (15:44)
[2019-09-30] MEDS: MAGNESIUM SULFATE / D5W 1 GM/100 ML BAG IV SCH (23:03)
[2019-10-01] MEDS: MAGNESIUM SULFATE / D5W 1 GM/100 ML BAG IV SCH ×3 (00:03→14:50)
[2019-10-01] MEDS: POTASSIUM CHLORIDE 20 MEQ TABCR PO SCH ×3 (08:34→21:38)
[2019-10-01] MEDS: ATENOLOL 25 MG TABLET PO SCH (08:34)
[2019-10-01 09:43] LABS: Hematocrit (blood only) 36.9 % (37-47); Hemoglobin 12.6 g/dL (12.0-16.0); Mean Corpuscular Hemoglobin 30.8 pg (25-34); Mean Corpuscular Hgb Conc 34.1 g/dL (32-36); Mean Corpuscular Volume 90.2 fL (80-100); Mean Platelet Volume 9.6 fL (7.4-10.4); Platelet Count 39 K/uL (130-400); RDW Coefficient of Variation 16.5 % (11.5-14.5); RDW Standard Deviation 54.3 fL (36.4-46.3); Red Blood Count 4.09 M/uL (4.2-5.4); White Blood Count 1.84 K/uL (4.8-10.8)
[2019-10-01 10:09] LABS: BUN Creatinine Ratio 18.1 (10-20); Creatinine Clr Calc Pharmacy 30.1 ml/min; Est GFR (African American) 57.4; Est GFR (Non-African American) 49.5; Magnesium 1.7 mg/dl (1.8-2.4); Potassium 3.6 mmol/L (3.5-5.1)
[2019-10-01] MEDS: POLYETHYLENE (MIRALAX) 17 GM PACK PO SCH (11:10)
--- NOTE | 2019-10-01 12:57 | Hospitalist Progress Note ---
Date of Service October 01, 2019 Assessment & Plan (1) Diarrhea: - Diarrhea for several months at home; treated for Salmonella GI infection in Jul 2019 with Ciprofloxacin. - Also with positive UC for Salmonella on 09/03/19 (>1 month after completing Cipro course) - Most recent stool culture and UC +Salmonella; previous UC 08/16/19 showed resistance to fluoroquinolones, likely leading to inadequate treatment at home and recurrent infection. - Received Ceftriaxone IV x 7 days; convert to Amoxicillin 500 mg TID for 7 day course (14 days total due to immunocompromised state) - Diarrhea is now resolved; currently c/o constipation, receiving bowel regimen. (2) Chronic lymphocytic leukemia: - Diagnosed in 2011 -- received 5 of 6 cycles of Bendamustine and Rituximab in summer then therapy was d/c'ed due to pancytopenia. - Pt. was previously refusing bone marrow biopsies but is now agreeable. - Dr. Sweeney spoke with her family member Natalie today, recommended hospice at [facility] with weekly labs/transfusions prn. (3) Pancytopenia: - In setting of CLL; possibly acute drop due to Salmonella infection. - Monitor CBC daily; transfuse prn hgb <7.5. - Will require weekly CBCs, transfusions prn following discharge. (4) Thrombocytopenia: - Plt count decreased to 18K on 09/29 -- received 1 unit platelets with improvement. - Monitor weekly CBC, transfuse prn following discharge to [facility]. (5) Non-small cell cancer of left lung: - Diagnosed on endobronchial biopsy by Dr. Neville in 05/2019. Initially plan had been for surgical resection, but her frailty, pancytopenia, and ongoing medical issues made her a poor surgical candidate. Now plan is for stereotactic body radiation with radiation oncology; however, from the patient's family description, and my read of the rad onc note, her tumor location makes this too risky. (Her family reports they were told of a risk of esophageal damage.) At present, it appears she will have to get more fractionated treatment. - Oncology consulted, plan for palliative route with hospice. - Palliative consulted, appreciate input. - Can consider following up with rad/onc for palliative radiation but may not be worth the risk at this point -- see above. (6) CAD (coronary artery disease): - Mildly elevated troponins (0.09 peak) in 07/2019, but otherwise don't see any history of CAD. Multiple cardiology notes do not reference any CAD. - Continue beta-jozef - Hold ASA due to thrombocytopenia. (7) Hypertension: - H/o orthostatic hypotension -- home Chlorthalidone d/c'ed due to electrolyte abnormalities. - Continue Atenolol as prescribed. (8) CKD (chronic kidney disease) stage 3, GFR 30-59 ml/min: - Baseline Cr. ~1.2-1.5, eGFR 45. - Currently at baseline. Monitor frequent BMPs. (9) Electrolyte abnormality: - K level improved with replacement - continue KCl 20 mEq TID. - Mag level 1.7 - ordered mag sulfate 2 gm IV. - Monitor levels daily. (10) DVT prophylaxis: SCDs; hold heparin due to thrombocytopenia. Dispo: Med/surg; discharge to [facility] with hospice pending acceptance. Will need weekly CBCs with transfusion support prn. Admission and Anticipated Discharge Date Admission Date: September 23, 2019 Subjective Pt. c/o being constipated - reports last BM was 9 days ago. Is eating/drinking as tolerated. Denies uncontrolled pain. Dr. Sweeney discussed prognosis/plan of care with her family member this morning -- plan to convert to hospice at personal snf with CBC weekly/transfusion support prn. Review of Systems Review of Systems: All systems reviewed & are unremarkable except as noted in HPI & below Constitutional: + fatigue and + weakness; no fever, no chills and no anorexia Respiratory: no cough, no dyspnea and no dyspnea on exertion Cardiovascular: no chest pain, no palpitations and no edema Gastrointestinal: + constipation; no abdominal pain, no nausea and no vomiting Genitourinary: no difficulty urinating Musculoskeletal: no back pain and no joint pain Integumentary: no non-healing lesions Physical Exam Physical Exam: General: Resting comfortably HEENT: NC/AT; PERRLA with EOMI; [place] conjunctiva, MMM. No erythema of posterior pharynx Neck: Supple and nontender Cardiac: RRR Lungs: CTA bilaterally Abdomen: Bowel normoactive X 4; Nontender to palpation Extremities: Warm. No edema present Neuro: No focal weakness Skin: No rash Results & Data ([facility]) Vital Signs (Past 12 Hours) Vital Signs Temp Pulse Resp BP Pulse Ox 10/01/19 07:30 36.7 C 74 16 117/61 98 Laboratory Results 10/01/19 10/01/19 Range/Units 09:16 09:16 WBC 1.84 L (4.8-10.8) K/uL RBC 4.09 L (4.2-5.4) M/uL Hgb 12.6 (12.0-16.0) g/dL Hct 36.9 L (37-47) % MCV 90.2 (80-100) fL MCH 30.8 (25-34) pg MCHC 34.1 (32-36) g/dL RDW Std Deviation 54.3 H (36.4-46.3) fL RDW Coeff of Ritchie 16.5 H (11.5-14.5) % Plt Count 39 L D (130-400) K/uL MPV 9.6 (7.4-10.4) fL Sodium 135 L (136-145) mmol/L Potassium 3.6 D (3.5-5.1) mmol/L Chloride 103 (98-107) mmol/L Carbon Dioxide 24 (21-32) mmol/L Anion Gap 8.0 (3-11) BUN 19 H (7-18) mg/dl Creatinine 1.03 (0.6-1.2) mg/dl Est Cr Clr Drug Dosing 30.1 ml/min Est GFR ( Amer) 57.4 Est GFR (Non-Af Amer) 49.5 BUN/Creatinine Ratio 18.1 (10-20) Glucose 116 H (70-99) mg/dl Calcium 8.0 L (8.5-10.1) mg/dl Magnesium 1.7 L (1.8-2.4) mg/dl PG Care Time/CCT Total # of Minutes Spent Total Time Spent with Patient: Total time spent is greater than 50% in co ordination of care (as documented) at patient's floor/unit and/or counseling patient: Coding Level of Care Code 01379 Subseq Hosp Care Lvl 3 Diagnoses Diarrhea R19.7 Diarrhea type: unspecified type Chronic lymphocytic leukemia C91.90 Pancytopenia D61.818 Thrombocytopenia D69.6 Non-small cell cancer of left lung C34.92 CAD (coronary artery disease) I25.10 Hypertension I10 Hypertension type: essential hypertension CKD (chronic kidney disease) stage 3, GFR 30-59 ml/min N18.3 Electrolyte abnormality E87.8 DVT prophylaxis Z29.9 (1) Diarrhea Diarrhea type: unspecified type Qualified Code(s): R19.7 - Diarrhea, unspecified (2) Hypertension Hypertension type: essential hypertension Qualified Code(s): I10 - Essential (primary) hypertension
[2019-10-01] MEDS: AMOXICILLIN 500 MG CAP PO SCH ×2 (13:55→21:38)
[2019-10-02] MEDS: ACETAMINOPHEN 325 MG TAB PO PRN (00:03)
--- NOTE | 2019-10-02 07:07 | CT Scan Report ---
CT head/brain wo con CLINICAL HISTORY: 83 years-old Female presenting with fall with head injury. TECHNIQUE: Multidetector CT imaging of the head was performed without the use of intravenous contrast . IV contrast: None. One or more dose lowering techniques were used consistent with the principles of ALARA (as low as reasonably achievable), including automatic exposure control, mA or kV adjustment t o individual patient size, and/or use of iterative reconstruction. COMPARISON: 07/07/2019. CT DOSE (mGy.cm): The estimated cumulative dose is 537.48 mGy.cm. FINDINGS: Powder Mixer topogram: Unremarkable. Proportional ventricular and sulcal prominence, likely age-related parenchymal volume loss. No hemorr swapna. Periventricular and subcortical white matter hypoattenuation, nonspecific but likely indicative of chronic small vessel ischemic change. No acute territorial infarct. No mass effect or midline geeta ft. No extra-axial fluid collection. Paranasal sinuses and mastoid air cells clear. Calvarium intact. IMPRESSION: 1. Chronic small vessel ischemic change. No acute intracranial abnormality. ACT 112: Negative or not required by law. Electronically signed by: Gelacio Jimenes M.D. 10/02/2019 7:06 AM
[2019-10-02 07:44] LABS: Hematocrit (blood only) 33.5 % (37-47); Hemoglobin 11.4 g/dL (12.0-16.0); Mean Corpuscular Hemoglobin 31.2 pg (25-34); Mean Corpuscular Volume 91.8 fL (80-100); Platelet Count 32 K/uL (130-400); RDW Coefficient of Variation 16.3 % (11.5-14.5); RDW Standard Deviation 54.8 fL (36.4-46.3); Red Blood Count 3.65 M/uL (4.2-5.4); White Blood Count 2.04 K/uL (4.8-10.8)
[2019-10-02 08:12] LABS: Albumin Level 2.4 gm/dl (3.4-5.0); Calcium 8.1 mg/dl (8.5-10.1); Creatinine Clr Calc Pharmacy 31.7 ml/min; Est GFR (Non-African American) 52.6; Magnesium 2.2 mg/dl (1.8-2.4); Potassium 4.5 mmol/L (3.5-5.1)
[2019-10-02 08:14] LABS: Albumin Globulin Ratio 0.9 (0.9-2); Bilirubin,Total 0.5 mg/dl (0.2-1); Globulin 2.6 gm/dl (2.5-4.0)
[2019-10-02] MEDS: ATENOLOL 25 MG TABLET PO SCH (08:33)
[2019-10-02] MEDS: AMOXICILLIN 500 MG CAP PO SCH ×3 (08:33→20:24)
[2019-10-02] MEDS: POLYETHYLENE (MIRALAX) 17 GM PACK PO SCH (08:34)
[2019-10-02] MEDS: POTASSIUM CHLORIDE 20 MEQ TABCR PO SCH (08:34)
[2019-10-02] MEDS ORDERED: POLYETHYLENE (MIRALAX) 17 GM PACK PO PRN (08:43)
--- NOTE | 2019-10-02 11:04 | Palliative Care Progress Note ---
Date of Service October 02, 2019 Assessment & Plan (1) Goals of care, counseling/discussion: -Have had multiple conversations with patient, her niece/POA [place], nurse outreach case manager and hospitalist. -Natalie had a long discussion with Dr. Sweeney yesterday. She and the patient decided patient will go home with hospice. -Spoke with Janneth this morning and reiterated the plan. She agrees that her goal is to go home with family on hospice care-- she does not want to pursue any further treatment for her cancer, including bone marrow biopsy, chemo or radiation. -returned to the room this afternoon when Natalie and patient's nephew were at bedside. We again went over the plan for home hospice. We discussed that this means no further life prolonging treatment, as well as the fact that lab draws can be done occasionally at home and possible periodic transfusions for comfort, but overall they are only going to treat symptomatically. patient and family verbalize understanding. -We talked about what to expect as blood counts drop: weakness, fatigue, drowsiness, and risk of bleeding with low platelet counts. Discussed this could also result in brain hemorrhage as well-- patient understanding. Patient reiterated many times that she has lived a good life, has "lived the way the Lord intended" her to, and she just wants to go home and be comfortable. -Asked patient rep to come by and do new living will at family's request. -No symptom management needs at this time. finance business manager and hospitalist updated throughout day. (2) Diarrhea: (3) Non-small cell cancer of left lung: (4) Chronic lymphocytic leukemia: Subjective Patient is AA&O x4. Did have BM, formed. Patient has no pain, she is anxious and ready to go home. Met a second time with patient, her niece, and nephew. Review of Systems Review of Systems: + mild weakness no SOB at rest, but mild SOB with activity, no cough no chest pain or edema no abdominal pain; no N/V; no diarrhea or constipation no confusion Physical Exam Constitutional: + thin and comfortable; no acute distress ENMT: external ear and nose normal, oropharynx normal Respiratory: normal respiratory effort, lungs clear to auscultation Cardiovascular: RRR, no murmur, no edema Gastrointestinal (Abdomen): Inspection/Auscultation: normal bowel sounds Percussion/Palpation: abdomen soft; abdomen nontender Skin: no rashes, warm and dry Neurologic: moves all extremities and awake; not confused Psychiatric: A+Ox3, euthymic affect Insight: good insight Results & Data Vital Signs (Past 12 Hours) Vital Signs Temp Pulse Resp BP Pulse Ox 10/02/19 07:26 36.4 C L 67 18 151/83 H 100 10/01/19 23:33 36.6 C 68 18 132/66 98 PG Care Time/CCT Prolonged Care Time Prolonged Care Time: Yes Total Prolonged Care Time: 65 Coding Level of Care Code 39175 Subseq Hosp Care Lvl 3 Diagnoses Goals of care, counseling/discussion Z71.89 Diarrhea R19.7 Diarrhea type: unspecified type Non-small cell cancer of left lung C34.92 Chronic lymphocytic leukemia C91.90 Additional Codes Prolonged Care Time - Prolonged Care Time: Yes ([id number]) Time Spent (min) 65 Time Spent Midlevel 65 minutes with >50% of time spent at bedside with patient and family, as well as care team, discussing home hospice, end of life issues, and advance care planning. (1) Diarrhea Diarrhea type: unspecified type Qualified Code(s): R19.7 - Diarrhea, unspecified
--- NOTE | 2019-10-02 15:24 | Hospitalist Progress Note ---
Date of Service October 02, 2019 Assessment & Plan (1) Diarrhea: - Diarrhea for several months at home; treated for Salmonella GI infection in Jul 2019 with Ciprofloxacin. - Also with positive UC for Salmonella on 09/03/19 (>1 month after completing Cipro course) - Most recent stool culture and UC +Salmonella; previous UC 08/16/19 showed resistance to fluoroquinolones, likely leading to inadequate treatment at home and recurrent infection. - Ceftriaxone IV x 7 days; converted to Amoxicillin 500 mg TID for 7 day course (14 days total due to immunocompromised state, end date: 10/08/19) - Diarrhea is resolved; required bowel regimen for constipation. (2) Chronic lymphocytic leukemia: - Diagnosed in 2011 -- received 5 of 6 cycles of Bendamustine and Rituximab in summer then therapy was d/c'ed due to pancytopenia. - Pt. was previously refusing bone marrow biopsies but is now agreeable. - Dr. Sweeney spoke with her family member Natalie; plan for discharge to the patient's brothers house with hospice and weekly CBC/transfusions prn. (3) Pancytopenia: - In setting of CLL; possibly acute drop due to Salmonella infection. - Monitor CBC daily; transfuse prn hgb <7.5. - Will require weekly CBCs, transfusions prn following discharge. (4) Thrombocytopenia: - Plt count decreased to 18K on 09/29 -- received 1 unit platelets with improvement. - Monitor weekly CBC, transfuse prn following discharge to [facility]. (5) Non-small cell cancer of left lung: - Diagnosed on endobronchial biopsy by Dr. Neville in 05/2019. Initially plan had been for surgical resection, but her frailty, pancytopenia, and ongoing medical issues made her a poor surgical candidate. Now plan is for stereotactic body radiation with radiation oncology; however, from the patient's family description, and read of the rad onc note, her tumor location makes this too risky. (Her family reports they were told of a risk of esophageal damage.) At present, it appears she will have to get more fractionated treatment. - Oncology consulted, plan for home hospice. - Palliative consulted, appreciate input. - Consider following up with rad/onc for palliative radiation but may not be worth the risk at this point -- see above. (6) Fall: - Fell from bed last evening - reports she was turning on her side and fell to the floor. - CT head was negative in setting of thrombocytopenia. - Mild injury of right lower lip but otherwise doing well today. - Will continue to monitor; fall precautions. (7) CAD (coronary artery disease): - Mildly elevated troponins (0.09 peak) in 07/2019, but otherwise don't see any history of CAD. Multiple cardiology notes do not reference any CAD. - Continue beta-jozef - Hold ASA due to thrombocytopenia. (8) Hypertension: - H/o orthostatic hypotension -- home Chlorthalidone d/c'ed due to electrolyte abnormalities. - Continue Atenolol as prescribed. (9) CKD (chronic kidney disease) stage 3, GFR 30-59 ml/min: - Baseline Cr. ~1.2-1.5, eGFR 45. - Currently at baseline. Monitor frequent BMPs. (10) Electrolyte abnormality: - K level improved with replacement. - Mag level 2.2 - no replacement required. - Monitor levels daily. (11) DVT prophylaxis: SCDs; hold heparin due to thrombocytopenia. Dispo: Med/surg; discharge to home hospice likely on 10/02, case management following. Family can provide 24 hour support. Admission and Anticipated Discharge Date Admission Date: September 23, 2019 Subjective Pt. fell overnight, reports she was attempting to turn in bed and fell onto the floor. CT head was negative. Does have mild edema of right lower lip, otherwise no acute injuries noted. Pt. and her niece are both agreeable to hospice -- plan for home hospice likely on 10/03/19. Review of Systems 2 Review of Systems: All systems reviewed & are unremarkable except as noted in HPI & below Constitutional: + fatigue and + weakness; no fever, no chills and no anorexia Respiratory: no cough, no dyspnea and no dyspnea on exertion Cardiovascular: no chest pain, no palpitations and no edema Gastrointestinal: no abdominal pain, no nausea, no vomiting and no constipation Genitourinary: no difficulty urinating Musculoskeletal: no back pain and no joint pain Integumentary: no non-healing lesions Neurologic: + falls Physical Exam Physical Exam: General: Resting comfortably HEENT: Mild edema of right lower lip noted; PERRLA with EOMI; [place] conjunctiva, MMM. No erythema of posterior pharynx Neck: Supple and nontender Cardiac: RRR Lungs: CTA bilaterally Abdomen: Bowel normoactive X 4; Nontender to palpation Extremities: Warm. No edema present Neuro: No focal weakness Skin: No rash Results & Data ([facility]) Vital Signs (Past 12 Hours) Vital Signs Temp Pulse Resp BP BP Pulse Ox 10/02/19 15:10 36.8 C 85 18 151/85 H 99 10/02/19 07:26 36.4 C L 67 18 151/83 H 100 Laboratory Results 10/02/19 10/02/19 Range/Units 07:11 07:11 WBC 2.04 L (4.8-10.8) K/uL RBC 3.65 L (4.2-5.4) M/uL Hgb 11.4 L (12.0-16.0) g/dL Hct 33.5 L (37-47) % MCV 91.8 (80-100) fL MCH 31.2 (25-34) pg MCHC 34.0 (32-36) g/dL RDW Std Deviation 54.8 H (36.4-46.3) fL RDW Coeff of Ritchie 16.3 H (11.5-14.5) % Plt Count 32 L (130-400) K/uL Sodium 135 L (136-145) mmol/L Potassium 4.5 D (3.5-5.1) mmol/L Chloride 105 (98-107) mmol/L Carbon Dioxide 22 (21-32) mmol/L Anion Gap 8.0 (3-11) BUN 20 H (7-18) mg/dl Creatinine 0.98 (0.6-1.2) mg/dl Est Cr Clr Drug Dosing 31.7 ml/min Est GFR ( Amer) 61.0 Est GFR (Non-Af Amer) 52.6 BUN/Creatinine Ratio 20.0 (10-20) Glucose 83 (70-99) mg/dl Calcium 8.1 L (8.5-10.1) mg/dl Magnesium 2.2 (1.8-2.4) mg/dl Total Bilirubin 0.5 (0.2-1) mg/dl AST 112 H (15-37) U/L ALT 74 (12-78) U/L Alkaline Phosphatase 171 H (45-117) U/L Total Protein 5.0 L (6.4-8.2) gm/dl Albumin 2.4 L (3.4-5.0) gm/dl Globulin 2.6 (2.5-4.0) gm/dl Albumin/Globulin Ratio 0.9 (0.9-2) PG Care Time/CCT Total # of Minutes Spent Total Time Spent with Patient: Total time spent is greater than 50% in coordination of care (as documented) at patient's floor/unit and/or counseling patient: Coding Level of Care Code 93992 Subseq Hosp Care Lvl 2 Diagnoses Diarrhea R19.7 Diarrhea type: unspecified type Chronic lymphocytic leukemia C91.90 Pancytopenia D61.818 Thrombocytopenia D69.6 Non-small cell cancer of left lung C34.92 Fall W19.XXXA CAD (coronary artery disease) I25.10 Hypertension I10 Hypertension type: essential hypertension CKD (chronic kidney disease) stage 3, GFR 30-59 ml/min N18.3 Electrolyte abnormality E87.8 DVT prophylaxis Z29.9 (1) Diarrhea Diarrhea type: unspecified type Qualified Code(s): R19.7 - Diarrhea, unspecified (2) Hypertension Hypertension type: essential hypertension Qualified Code(s): I10 - Essential (primary) hypertension
[2019-10-03 07:31] LABS: Hematocrit (blood only) 33.4 % (37-47); Hemoglobin 11.3 g/dL (12.0-16.0); Mean Corpuscular Hemoglobin 30.8 pg (25-34); Mean Corpuscular Hgb Conc 33.8 g/dL (32-36); Platelet Count 24 K/uL (130-400); RDW Coefficient of Variation 16.3 % (11.5-14.5); RDW Standard Deviation 53.6 fL (36.4-46.3); Red Blood Count 3.67 M/uL (4.2-5.4); White Blood Count 1.83 K/uL (4.8-10.8)
[2019-10-03 07:50] LABS: Platelet Estimate SIGNIFIC DECREASED (Normal)
[2019-10-03 07:55] LABS: BUN Creatinine Ratio 17.8 (10-20); Calcium 8.3 mg/dl (8.5-10.1); Creatinine Clr Calc Pharmacy 32.7 ml/min; Est GFR (African American) 63.3; Est GFR (Non-African American) 54.6; Magnesium 1.7 mg/dl (1.8-2.4); Potassium 4.3 mmol/L (3.5-5.1)
[2019-10-03] MEDS: AMOXICILLIN 500 MG CAP PO SCH ×3 (07:57→20:44)
[2019-10-03] MEDS: ATENOLOL 25 MG TABLET PO SCH (07:57)
--- NOTE | 2019-10-03 13:56 | Hospitalist Progress Note ---
Date of Service October 03, 2019 Assessment & Plan (1) Diarrhea: - Diarrhea x several months - treated for Salmonella GI infection (Jul 2019) with Cipro; also had UC + for Salmonella after treatment - Utilized Ceftriaxone IV x 7 days; converted to Amoxicillin 500 mg TID x 7 day course (total 14 days treatment): Abx end date 10/08/19 - Diarrhea resolved; last BM on 10/02 - Bowel regimen if needed (2) Chronic lymphocytic leukemia: - Diagnosed in 2011 -- received 5 of 6 cycles of Bendamustine and Rituximab in summer then therapy was d/c'ed due to pancytopenia. - Pt. was previously refusing bone marrow biopsies - Dr. Sweeney spoke with her family member Natalie; plan for discharge to the patient's brothers house with hospice and weekly CBC/transfusions PRN (3) Pancytopenia: - In setting of CLL; possibly acute drop due to Salmonella infection? - Monitor CBC daily; transfuse PRN hgb <7.5. - Will require weekly CBCs, transfusions PRN following discharge if wanted for symptom control (4) Thrombocytopenia: - Plt count decreased to 18K on 09/29 -- received platelets with improvement. - Plt 24 on AM labs - will transfuse platelets - can reassess labs in AM -- Did discuss with patient who agrees to transfusion to improve counts prior to return home (5) Non-small cell cancer of left lung: - Diagnosed on endobronchial biopsy by Dr. Neville in 05/2019. Initially plan had been for surgical resection, but her frailty, pancytopenia, and ongoing medical issues made her a poor surgical candidate. Now plan is for stereotactic body radiation with radiation oncology; however, from the patient's family description, and reading of the rad onc note, her tumor location makes this too risky. (Her family reports they were told of a risk of esophageal damage.) At present, it appears she will have to get more fractionated treatment. - Oncology and Palliative consulted, plan for home hospice. - Consider following up with rad/onc for palliative radiation but may not be worth the risk at this point -- see above. -- Patient verbalized not pursuing further treatment per discussion with palliative care (6) Fall: - Fell from bed early AM on 10/01 - reports she was turning on her side and fell to the floor. - CT head was negative in setting of thrombocytopenia. - Mild injury of right lower lip but otherwise doing well; no new symtoms or pain reported today - Will continue to monitor; fall precautions. (7) CAD (coronary artery disease): - Mildly elevated troponins (0.09 peak) in 07/2019, but otherwise don't see any history of CAD. Multiple cardiology notes do not reference any CAD. - Continue beta-jozef - Hold ASA due to thrombocytopenia. (8) Hypertension: - H/O orthostatic hypotension -- home Chlorthalidone d/c'ed due to electrolyte abnormalities. - Continue Atenolol as prescribed. (9) CKD (chronic kidney disease) stage 3, GFR 30-59 ml/min: - Baseline Cr. ~1.2-1.5, eGFR 45. - Currently at baseline. Can continue to monitor (10) DVT prophylaxis: SCDs; hold heparin due to thrombocytopenia. Dispo: Med/surg; discharge to home on hospice likely on 10/03, case management following. Family can provide 24 hour support. Admission and Anticipated Discharge Date Admission Date: September 23, 2019 Anticipated date of discharge: 10/04/19 Subjective Reports feeling well today. Sleeps most of the day. Denies any pain from her recent fall. Plts are a little lower today at 24 and will transfuse. She reports not having much of an appetite but tries to eat what she can. She moved her bowels today. Verbalizes no other complaints at this time. Review of Systems Constitutional: + fatigue and + weakness; no fever and no chills Respiratory: no cough and no dyspnea Cardiovascular: no chest pain and no lightheadedness Gastrointestinal: no abdominal pain, no nausea, no vomiting, no constipation and no diarrhea/loose stools Genitourinary: no dysuria Integumentary: no rash Neurologic: + falls (on 10/01 early AM) Physical Exam Constitutional: WD/WN, vitals as above no acute distress Neck: trachea midline Respiratory: normal respiratory effort, lungs clear to auscultation Cardiovascular: RRR, no murmur, no edema Gastrointestinal (Abdomen): Inspection/Auscultation: normal bowel sounds Percussion/Palpation: abdomen soft; abdomen nontender Skin: no rashes, warm and dry Neurologic: moves all extremities Psychiatric: A+Ox3, euthymic affect Results & Data ([facility]) Vital Signs (Past 12 Hours) Vital Signs Temp Pulse Pulse Resp BP BP Pulse Ox 10/03/19 13:45 36.5 C 77 16 100/64 97 10/03/19 13:31 36.8 C 77 16 101/71 98 10/03/19 07:26 36.6 C 76 20 128/79 97 PG Care Time/CCT Total # of Minutes Spent Total Time Spent with Patient: Total time spent is greater than 50% in coordination of care (as documented) at patient's floor/unit and/or counseling patient: Coding Level of Care Code 84422 Subseq Hosp Care Lvl 2 Diagnoses Diarrhea R19.7 Diarrhea type: unspecified type Chronic lymphocytic leukemia C91.90 Pancytopenia D61.818 Thrombocytopenia D69.6 Non-small cell cancer of left lung C34.92 Fall W19.XXXA CAD (coronary artery disease) I25.10 Hypertension I10 Hypertension type: essential hypertension CKD (chronic kidney disease) stage 3, GFR 30-59 ml/min N18.3 DVT prophylaxis Z29.9 (1) Diarrhea Diarrhea type: unspecified type Qualified Code(s): R19.7 - Diarrhea, unspecified (2) Hypertension Hypertension type: essential hypertension Qualified Code(s): I10 - Essential (primary) hypertension
[2019-10-03] MEDS: ACETAMINOPHEN 325 MG TAB PO PRN (22:26)
[2019-10-04] MEDS: AMOXICILLIN 500 MG CAP PO SCH (08:47)
[2019-10-04] MEDS: ATENOLOL 25 MG TABLET PO SCH (08:48)
[2019-10-04 10:30] LABS: Hematocrit (blood only) 32.4 % (37-47); Hemoglobin 10.9 g/dL (12.0-16.0); Mean Corpuscular Hgb Conc 33.6 g/dL (32-36); Mean Platelet Volume 10.1 fL (7.4-10.4); Platelet Count 50 K/uL (130-400); RDW Coefficient of Variation 16.4 % (11.5-14.5); RDW Standard Deviation 55.1 fL (36.4-46.3); Red Blood Count 3.52 M/uL (4.2-5.4); White Blood Count 1.36 K/uL (4.8-10.8)
[2019-10-04 10:53] LABS: BUN Creatinine Ratio 17.5 (10-20); Creatinine Clr Calc Pharmacy 28.7 ml/min; Est GFR (African American) 54.2; Est GFR (Non-African American) 46.8; Potassium 3.5 mmol/L (3.5-5.1)
--- NOTE | 2019-10-04 18:54 | Discharge Summary ---
Date of Service October 04, 2019 Admission HPI Per Admitting Provider 83yo F w/ hx of CLL, non-small cell carcinoma of the lung, and Salmonella diarrhea who presents with continued diarrhea and pre-syncopal event. The patient has been dealing with diarrhea for several months now. She orig inally tested positive for Salmonella in 07/07/2019. She was admitted at that time after having had diarrhea about 1 week, having syncopal episodes, and in fact having kidney failure from dehydration. She was treated with 1 week of ciprofloxacin entirely while being in the hospital. Cipro finished on 07/19/2019. Her hospital stay was prolonged due to suppressed cell counts that were presumed to be due to her CLL. She required transfusions of both PRBCs and platelets during that admission with hgb as low as 6.8 and plts as low as 10. There was some concern that she had progression of her CLL; however, per Dr. Sweeney's notes, she has declined bone marrow biopsy in the past and continues to decline it. She was eventually discharged to SNF on 07/20/2019. She was seen in primary care on 07/31/2019 and had labs done which showed low potassium, and she was again admitted for repletion of her electrolytes. She actually had not felt too bad at that time, and reported to me (Jasmeet Khan) that she would not have come to the hospital except that her PCP had told her to. She felt better fairly quickly and was discharged home on 08/02. At that time, her chlorthalidone was stopped, and she was put on electrolyte supplements. She was seen by PCP on 08/13/2019 and seemed to be doing well. She was put on abx by the Emergency Department on 08/16/2019 for an episode of low BP at home (though normal BP on the vitals I see in the ED) and a dirty UA. Her urine cx grew Morganella morganii & Alpha Strep spc. She returned to the ED on 09/03/2019 with another episode of weakness and diarrhea. Her urine cx this time grew Salmonella - Same group as her stool in 07/2019. She was sent home from the ED with cefdinir (seeing as the culture had not returned yet on ED discharge). She returns to the hospital today for continued diarrhea and another pre- syncopal event. Her niece and god-daughter are with her today. They report that her diarrhea improved temporarily, but has been back for at least the last several weeks. They report that it is sometimes loose and has a pinkish tinge to it, but no outright hematochezia or melena. Principal Diagnosis Salmonella Diarrhea/UTI Discharge Exam Constitutional WD/WN, vitals as above no acute distress Neck trachea midline Respiratory normal respiratory effort, lungs clear to auscultation Cardiovascular RRR, no murmur, no edema Gastrointestinal (Abdomen) Inspection/Auscultation: normal bowel sounds Percussion/Palpation: abdomen soft; abdomen nontender Musculoskeletal Right hand mildly edematous but not warm or erythematous; cap refill immediate - site of IV infiltration Skin no rashes, warm and dry Neurologic moves all extremities Psychiatric A+Ox3, euthymic affect Discharge Data Allergies Allergy/AdvReac Type Severity Reaction Status Date / Time codeine AdvReac Mild nausea Verified 09/23/19 02:03 tramadol AdvReac Mild GI upset, Verified 09/23/19 02:03 dizziness Consultations 09/23/19 16:12 Consult Infectious Diseases Routine Consult Oncology Routine Consult Palliative Care Routine 10/02/19 14:29 Consult Patient Services Routine Ordered Studies 09/23/19 02:43 CT abd pelvis wo con Urgent 09/24/19 10:33 CT chest wo con Routine 10/02/19 05:55 CT head/brain wo con Urgent Hospital Course (1) Diarrhea: - Diarrhea x several months - treated for Salmonella GI infection (Jul 2019) with Cipro; also had UC + for Salmonella after treatment - Utilized Ceftriaxone IV x 7 days; converted to Amoxicillin 500 mg BID (renal dose) x 7 more days - ID input appreciated - Diarrhea resolved some intermittent constipation; last BM on 3/4 - Bowel regimen if needed (2) Chronic lymphocytic leukemia: - Diagnosed in 2011 -- received 5 of 6 cycles of Bendamustine and Rituximab in summer then therapy was d/c'ed due to pancytopenia. - Pt. was previously refusing bone marrow biopsies - Dr. Sweeney spoke with her family member Natalie; plan for discharge to the patient's brothers house with hospice and weekly CBC/transfusions PRN (3) Pancytopenia: - In setting of CLL; possibly acute drop due to Salmonella infection? - Monitor CBC daily; transfuse PRN hgb <7.5. - Will require weekly CBCs, transfusions PRN following discharge if wanted for symptom control - Rx provided for CBC x 1 week (4) Thrombocytopenia: - Plt count decreased to 18K on 09/29 and again to 24 on 10/02 -- received platelets with improvement. - currently at 50 (5) Non-small cell cancer of left lung: - Diagnosed on endobronchial biopsy by Dr. Neville in 05/2019. Initially plan had been for surgical resection, but her frailty, pancytopenia, and ongoing medical issues made her a poor surgical candidate. Now plan is for stereotactic body radiation with radiation oncology; however, from the patient's family description, and reading of the rad onc note, her tumor location makes this too risky. (Her family reports they were told of a risk of esophageal damage.) At present, it appears she will have to get more fractionated treatment. - Oncology and Palliative consulted, plan for home hospice. - Consider following up with rad/onc for palliative radiation but may not be worth the risk at this point -- see above. -- Patient verbalized not pursuing further treatment per discussion with palliative care (6) Fall: - Fell from bed early AM on 10/01 - reports she was turning on her side and fell to the floor. - CT head was negative in setting of thrombocytopenia. - Mild injury of right lower lip but otherwise doing well; no new symtoms or pain reported today - Will continue to monitor; fall precautions. (7) CAD (coronary artery disease): - Mildly elevated troponins (0.09 peak) in 07/2019, but otherwise don't see any history of CAD. Multiple cardiology notes do not reference any CAD. - Continue beta-jozef (8) Hypertension: - H/O orthostatic hypotension -- home Chlorthalidone d/c'ed due to electrolyte abnormalities. - Continue Atenolol as prescribed. (9) CKD (chronic kidney disease) stage 3, GFR 30-59 ml/min: - Baseline Cr. ~1.2-1.5, eGFR 45. - Currently at baseline. Can continue to monitor (10) DVT prophylaxis: SCDs; hold heparin due to thrombocytopenia. Dispo: Med/surg; discharge to home on hospice; can have periodic transfusion for comfort if wanted Total Time Total Time Spent Total Time Spent (In Minutes): Greater than 30 minutes Discharge Plan Discharge Items Patient Disposition: Personal [facility] Care Reason For Visit: DIARRHEA. HYPOMAGNESEMIA Discharge Diagnosis: Salmonella infection (UTI and stool culture positive), CLL, Non-small cell lung cancer Condition on Discharge: Fair Goals: You have been hospitalized for an acute medical problem. During your stay at [facility], we have made an effort to correct the problem that brought you to the hospital while keeping you as comfortable as possible. Medications were used to bring your condition under control and your discharge instructions will include directions for any medications you should take after leaving the hospital. Please make sure you see your Primary Care Provider as part of your follow up plan. Activity: As commented below Exercise/Sports: As tolerated Non-emergency contact: Primary Care Provider and Oncologist Call non-emergency contact if: you have any medication questions, your symptoms worsen and you have a fever Follow-up/Referrals: Kamran De La Rosa DO [Primary Care Provider] - 10/01/19 4:00 pm Diet: Regular Ambulatory Orders: Complete Blood Count no Diff (Timed) Timeframe: 1 Week Location: Determined by Patient Ordered By: Lissy Hinton Attending Provider Instructions: 1. Diarrhea & UTI related to Salmonella infection * Please take Amoxicillin two times daily for a 7 day course. We need to cover this a little longer then normal given the recurrence of this issue * Please drink plenty of fluids to avoid dehydration -- at least 8-10 glasses per day. * Thankfully the diarrhea seemed to have stopped. Will need to watch for constipation. Could use Miralax as needed for constipation. 2. CLL and Non-small cell lung cancer * You will be discharged with hospice. * Please contact your hospice nurses with any concerns/questions. * A weekly CBC (blood count blood work) will need to be monitored starting next TuesdayOctober 08. Results will be faxed to your oncologist for evaluation. You will be contacted if you require transfusion support based on lab work results. If you decide you do not want this anymore, that is okay too. You can let the hospice group know * Consider re-evaluation by radiation oncology as an outpatient to discuss palliative radiation therapy if you would want this 3. Low Platelets: -- We did transfuse platelets and currently they are at 50. They are still lower than normal but improved from your previous labs. Be mindful of bruising and bleeding. 4. IV infiltration - The IV site you had in your hand infiltrated, meaning it moved out of the vein. Thankfully you are not having pain. It may be swollen for a few days. Continue a warm compress/heating pad. Can also alternate with some ice for the swelling. Keep hand elevated when you can Pending Studies at Discharge: No Stand-Alone Forms: My [facility] Skilled Items Patient informed of condition?: Yes DNR: Yes Discharge Level of Care: Other Communicable Disease: No Discharge Prognosis: Improving Lines: None Urinary Catheter: No Medications and DC Order Prescriptions: New amoxicillin 500 mg Capsule 500 mg PO BID 7 Days Qty: 14 RF: 0 Continued ferrous sulfate [Iron (ferrous sulfate)] 325 mg (65 mg iron) tablet 325 mg PO QAM Qty: 90 RF: 3 atenolol 25 mg tablet 25 mg PO DAILY Qty: 30 RF: 2 multivitamin Capsule 1 cap PO QAM Qty: 90 RF: 3 potassium chloride [K-Tab] 10 mEq tablet extended release 10 meq PO QAM Qty: 90 RF: 3 Florastor 250 mg capsule 250 mg PO BID Qty: 20 RF: 0 Discharge Orders: Discharge Order (Routine); Ordered 10/04/19 Ordered By: Lissy Pichardo Admission Data Admit Date/Time: 09/23/19 07:31 Attending Provider: Roly Torres Admit Provider: Jasmeet Khan Primary Care Provider: Kamran De La Rosa Other Providers: Maurice Sweeney V. ; Nelly Mcbride ; Barb Winchester ; [facility] Other Interventions: Discharge Summary Assessment (RN) Last Done: 10/04/19 14:32 DC Date/Time DO NOT enter until pt leaves facility: 10/04/19 15:28 Supervising Physician Co-Signing Physician Notes Attending note: patient seen and examined with Lissy Pichardo PA-C. I agree with her discharge summary. I personally reviewed the labs and imaging findings. patient ready for discharge today, she is going home with hospice no diarrhea currently, no significant pain - CLL with pancytopenia plan for weekly CBC, transfuse as needed for the time being will transition to hospice at home - Lung CA: possible plans for palliative radiation will see how she does from performance status - Salmonella, diarrhea, UTI treated adequately at this point, ID following no diarrhea at this time for full details see the above d/c summary Coding Level of Care Code D/C Day Management >30 mins Diagnoses Diarrhea R19.7 Diarrhea type: unspecified type Chronic lymphocytic leukemia C91.90 Pancytopenia D61.818 Thrombocytopenia D69.6 Non-small cell cancer of left lung C34.92 Fall W19.XXXA CAD (coronary artery disease) I25.10 Hypertension I10 Hypertension type: essential hypertension CKD (chronic kidney disease) stage 3, GFR 30-59 ml/min N18.3 DVT prophylaxis Z29.9
[2019-10-04] MEDS ORDERED: AMOXICILLIN 500 MG CAP PO SCH (21:00)
== END 2019-10-04 15:28 | disposition hospice, home (50) | DRG 372 ==
LOC: ED 01:28 → 2N 07:31 → SUATTDRO 07:31 → 2N 08:32 → 4W 09-27 00:28